=== PATIENT | male | born 1945 | race Caucasian/White ===

== ENCOUNTER → 2016-11-27 | Outpatient (CLI) | payer BC, OTHER ==
[~2016-11-27] MED LIST: AMOX500C3 PO; ASPI-435 PO; CELE100C PO; CMD5 PO; COLE625T PO; CYCL0.05 OPB; DEXL60CA4; GLUCTAB7 PO; METO-551 PO; MISC1LIQ37 PO; MOVE-FREE PO; MULT-506 PO; POLY150C4 PO; PREG1CAP28 PO; TEST1GEL12; ZNTT/150 PO; ZOLP12.5 PO
== END | disposition home or self-care (01) ==
LOC: C.LABPBG 09:23
PROVIDERS: ATTEND Family Medicine
DX: Z00.00 Encounter for general adult medical examination without abnormal findings (principal)

== ENCOUNTER → 2017-01-08 | Outpatient (CLI) | payer BC, OTHER ==
--- NOTE | 2017-01-08 12:10 | DIAGNOSTIC IMAGING REPORT ---
TWO VIEW CHEST CLINICAL HISTORY: Cough. FINDINGS: PA and lateral chest radiographs are obtained. No prior studies are available for comparison at the time of dictation. The patient is status post midline sternotomy and mitral valve surgery. The heart is enlarged and there is atherosclerotic calcification of the thoracic aorta. The pulmonary vasculature is noncongested. Chronic interstitial thickening is observed. There is patchy airspace consolidation in the right upper lobe. The left lung is grossly clear and no pleural effusion is seen. There is no pneumothorax. The skeletal structures are osteopenic. Degenerative change and hyperkyphosis are noted in the thoracic spine. Cholecystectomy clips are seen in the right upper quadrant. IMPRESSION: 1. There is patchy airspace consolidation in the right upper lobe. The appearance is typical for pneumonia. Radiographic follow-up to resolution is recommended. 2. The lungs are otherwise clear. No pleural effusion is seen. 3. Cardiomegaly without radiographic evidence of congestive failure. Electronically signed by: Orville Santos M.D. 01/08/2017 12:09 PM Dictated Date/Time: 01/08/2017 12:07 PM
== END | disposition home or self-care (01) ==
LOC: C.RADBC 11:39
PROVIDERS: ATTEND Physician Assistant
DX: J18.1 Lobar pneumonia, unspecified organism (principal); I51.7 Cardiomegaly

== ENCOUNTER → 2017-03-31 | Outpatient (CLI) | payer BC, OTHER ==
--- NOTE | 2017-03-31 14:58 | DIAGNOSTIC IMAGING REPORT ---
TWO VIEW CHEST CLINICAL HISTORY: Pneumonia follow-up. FINDINGS: PA and lateral chest radiographs are compared to study dated 01/08/2017. The patient is status post midline sternotomy and mitral valve surgery. The heart is enlarged and there is atherosclerotic calcification of the thoracic aorta. The pulmonary vasculature is noncongested. Chronic interstitial thickening is observed. No airspace consolidation or pleural effusion is identified. Right upper lobe consolidation seen on 01/08/2017 has resolved. There is no pneumothorax. The skeletal structures are osteopenic. Degenerative change and hyperkyphosis are noted in the thoracic spine. Cholecystectomy clips are seen in the right upper quadrant. IMPRESSION: 1. Cardiomegaly with no acute cardiopulmonary abnormality. 2. Consolidation in the right upper lobe seen on 01/08/2017 has resolved. Electronically signed by: Orville Santos M.D. 03/31/2017 2:57 PM Dictated Date/Time: 03/31/2017 2:55 PM
[2017-03-31 17:55] LABS: ALT/SGPT 39 U/L (12-78); AST/SGOT 28 U/L (15-37); BLOOD UREA NITROGEN 21 mg/dl (7-18); BUN/CREATININE RATIO 15.9 (10-20); CALCIUM 8.6 mg/dl (8.5-10.1); CARBON DIOXIDE 28 mmol/L (21-32); CHLORIDE 109 mmol/L (98-107); GLUCOSE 93 mg/dl (70-99); POTASSIUM 4.5 mmol/L (3.5-5.1); SODIUM 143 mmol/L (136-145)
[2017-03-31 17:57] LABS: ALB/GLOB RATIO 1.1 (0.9-2); ALKALINE PHOSPHATASE 62 U/L (45-117)
== END | disposition home or self-care (01) ==
LOC: C.RADBC 14:09
PROVIDERS: ATTEND Family Medicine
DX: J18.9 Pneumonia, unspecified organism (principal); I10 Essential (primary) hypertension; I51.7 Cardiomegaly

== ENCOUNTER → 2017-04-14 | Outpatient (CLI) | payer BC, OTHER ==
[2017-04-14 10:28] LABS: ALT/SGPT 35 U/L (12-78); BLOOD UREA NITROGEN 21 mg/dl (7-18); BUN/CREATININE RATIO 15.2 (10-20); C-REACTIVE PROTEIN 1.02 mg/dl (0-0.29); CARBON DIOXIDE 25 mmol/L (21-32); CHLORIDE 108 mmol/L (98-107); GLUCOSE 71 mg/dl (70-99); POTASSIUM 4.4 mmol/L (3.5-5.1); SODIUM 140 mmol/L (136-145)
[2017-04-14 10:31] LABS: ALKALINE PHOSPHATASE 62 U/L (45-117); AST/SGOT 29 U/L (15-37)
--- NOTE | 2017-06-10 10:44 | CODING QUERY NO DIAGNOSIS ---
TREATMENT RENDERED WITHOUT A DIAGNOSIS To promote full compliance with coding requirements relating to patient care, physician participation is requested in all cases of embedded firmware engineer uncertainty. Please assist us with providing a diagnosis/symptom for the test(s) below: A diagnosis/symptom was not documented on your Order. A valid diagnosis/symptom is required to bill all insurances. Please remember that we are unable to code a diagnosis of rule out, probable, possible, questionable, or suspected. Tests that require a diagnosis: DOS 04/14 * ESR, CMP, CRP DIAGNOSIS: Provider Signature: Date: Thank you Supriya [facility] Information Management Once completed, please kindly fax back to [phone] For questions please call [phone]
== END | disposition home or self-care (01) ==
LOC: C.LABSPEC 09:15
PROVIDERS: ATTEND Internal Medicine Rheumatology
DX: M45.0 Ankylosing spondylitis of multiple sites in spine (principal)

== ENCOUNTER → 2017-07-21 | Outpatient (CLI) | payer BC, OTHER ==
[2017-07-21 11:48] LABS: HEMATOCRIT 43.6 % (42-52); MEAN CELL VOLUME 90.1 fL (80-100); MEAN CORPUSCULAR HGB CONC 34.4 g/dl (32-36); MEAN PLATELET VOLUME 12.4 fL (7.4-10.4); PLATELET COUNT 260 K/uL (130-400); RED BLOOD COUNT 4.84 M/uL (4.7-6.1); WHITE BLOOD COUNT 7.18 K/uL (4.8-10.8)
[2017-07-21 11:55] LABS: BLOOD UREA NITROGEN 21 mg/dl (7-18); BUN/CREATININE RATIO 16.2 (10-20); CALCIUM 9.5 mg/dl (8.5-10.1); CARBON DIOXIDE 28 mmol/L (21-32); CHLORIDE 105 mmol/L (98-107); GLUCOSE 111 mg/dl (70-99); POTASSIUM 4.5 mmol/L (3.5-5.1); SODIUM 138 mmol/L (136-145)
== END | disposition home or self-care (01) ==
LOC: C.LABPBG 10:10
PROVIDERS: ATTEND Internal Medicine Interventional Cardiology
DX: I25.10 Atherosclerotic heart disease of native coronary artery without angina pectoris (principal)

== ENCOUNTER → 2017-10-02 | Outpatient (CLI) | payer BC, OTHER ==
[2017-10-02 17:23] LABS: BASO % 0.3 %; BASO ABS # 0.02 K/uL (0-0.2); COMPLETE YES; EOS % 1.3 %; HEMATOCRIT 43.5 % (42-52); IG% 0.5 %; LYMPH % 26.4 %; LYMPH ABS # 1.59 K/uL (1.2-3.4); MEAN CELL VOLUME 93.1 fL (80-100); MEAN CORPUSCULAR HEMOGLOBIN 32.3 pg (25-34); MEAN CORPUSCULAR HGB CONC 34.7 g/dl (32-36); MEAN PLATELET VOLUME 12.2 fL (7.4-10.4); MONO % 9.5 %; PLATELET COUNT 241 K/uL (130-400); RED BLOOD COUNT 4.67 M/uL (4.7-6.1); WHITE BLOOD COUNT 6.03 K/uL (4.8-10.8)
[2017-10-02 17:42] LABS: ALT/SGPT 42 U/L (12-78); BLOOD UREA NITROGEN 18 mg/dl (7-18); BUN/CREATININE RATIO 14.6 (10-20); CALCIUM 9.2 mg/dl (8.5-10.1); CARBON DIOXIDE 27 mmol/L (21-32); CHLORIDE 107 mmol/L (98-107); CREATININE 1.25 mg/dl (0.60-1.40); GLUCOSE 94 mg/dl (70-99); POTASSIUM 4.4 mmol/L (3.5-5.1); SODIUM 139 mmol/L (136-145)
[2017-10-02 17:53] LABS: ALB/GLOB RATIO 1.2 (0.9-2); ALKALINE PHOSPHATASE 54 U/L (45-117); AST/SGOT 31 U/L (15-37)
--- NOTE | 2017-10-09 10:30 | CODING QUERY MEDICAL NECESSITY ---
SUPPORTING DIAGNOSIS NEEDED Dr. Minor, A supporting diagnosis is required for the test/procedure performed on this patient in order for us to be reimbursed by the patient's insurance. Please provide a supporting diagnosis for the following test/procedure listed below next to the test name along with your signature. *If there is no additional diagnosis for this patient that would support the following test/procedure please document that below next to the test/procedure. Test(s)/Procedure(s) that require a supporting diagnosis: * ([id number]) B12 VITAMIN LEVEL DIAGNOSIS: DATE OF SERVICE: 10/02/17 Provider Signature: Date: Thank you Remi Kingston [facility] Information Management Once completed, please kindly fax back to [phone] For questions please call [phone]
== END | disposition home or self-care (01) ==
LOC: C.LABPBG 11:12
PROVIDERS: ATTEND Family Medicine
DX: G62.9 Polyneuropathy, unspecified (principal); R60.9 Edema, unspecified

== ENCOUNTER → 2018-02-23 | Day surgery (SDC) | payer BC, OTHER ==
[2018-02-11 16:20] VITALS: Ht 163.8 cm; Wt 79.1 kg
[~2018-02-23] VITALS: Ht 163.8 cm; Wt 79.1 kg
[~2018-02-23] MED LIST changes: +ALUM1SUS; +AMLO10TA2 PO; -CELE100C PO; +CLB/200 PO; +CMD/25 PO; -CMD5 PO; -COLE625T PO; -CYCL0.05 OPB; +CYCL0.052 OP; +DICL1GEL12; +ENOX80IN SQ; +LIDOCAINE HCL 2% 2 ML VIAL (20MG/ML) ONE; +LPR50X PO; +OXYC-643 PO; +PREG100C PO; -PREG1CAP28 PO; +PROPOFOL IV EMULSION 10 MG/ML 20 ML VIAL ONE; +RANI150T85 PO; +RANO1000 PO; +RANO500T PO; +SENN-61 PO; +SODIUM CHLORIDE 0.9% 500ML 500 ML IV ONE; -TEST1GEL12; +WARF5TAB90 PO; +WLC625 PO; -ZNTT/150 PO
--- NOTE | 2018-02-23 11:56 | Endo History and Physical ---
History & Physical Date of Service: February 23, 2018. Chief Complaint: Dukes's Referring Physician: Dr. 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 Past Medical History Male Genitourinary Prob., Reflux, Cancer, High Cholesterol, CABG, CVA/TIA Past Surgical History Hx Cardiac Surgery: Yes (CABG & REPAIR [facility] MITRAL [facility]VE-DEC [facility] Hx Internal Defibrillator: No Hx Pacemaker: No Hx Abdominal Surgery: Yes (CHOLECYSTECTOMY) Hx of Implantable Prosthesis: No Hx Post-Op Nausea and Vomiting: No Hx Cancer Surgery: Yes (SKIN CANCER REMOVED "SEVERAL TIMES") Hx Thoracic Surgery: No Hx Orthopedic: No Hx Urinary Tract Surgery: No Family History IBD Social History Smoking Status: Never Smoker Hx Substance Use: No Hx Alcohol Use: No Allergies Coded Allergies: Adalimumab (Verified Allergy, Severe, NEUROPATHY/STIFF/SORE HANDS/FEET; PARKINSONS; CARPAL TUNNEL, 02/11/18) Infliximab (Verified Allergy, Severe, NEUROPATHY/STIFF/SORE HANDS/FEET; PARKINSONS; CARPAL TUNNEL, 02/23/18) Latex (Verified Allergy, Mild, RASH, 02/11/18) Sulfa Drugs (Verified Allergy, Mild, RASH/ITCH, 02/23/18) Benzyl Alcohol (Verified Allergy, Unknown, NEUROPATHY/STIFF/SORE HANDS/ FEET; PARKINSONS; CARPAL TUNNEL, 02/11/18) Etanercept (Verified Allergy, Unknown, NEUROPATHY;STIFF/SORE HANDS/FEET; PARKINSONS; CARPAL TUNNEL, 02/11/18) Mouse Protein (Verified Allergy, Unknown, NEUROPATHY, 02/11/18) Secukinumab (Verified Allergy, Unknown, NEUROPATHY, 02/11/18) Sorbitan (Verified Allergy, Unknown, NEUROPATHY, 02/11/18) Tromethamine (Verified Allergy, Unknown, NEUROPATHY/STIFF/SORE HANDS/FEET ; PARKINSONS; CARPAL TUNNEL, 02/11/18) Lisinopril (Verified Adverse Reaction, Unknown, COUGH,SLUSHING NOISE IN EARS, 02/11/18) Current Medications Reported Home Medications Medications Dose Route/Sig Max Daily Dose Days Date Category Welchol (Colesevelam Hcl) 625 Mg Tab 3 Tabs PO DAILY 02/11/18 Reported Voltaren 1% Top Gel (Diclofenac Sodium (Topical)) 1 % Gel DIRECTED 02/11/18 Reported Senokot (Senna) 8.6 Mg Tab 1 Tab PO Q2D 02/11/18 Reported Restasis (Cyclosporine (Ophth)) 0.05 % Emu 1 Drops OP BID 30 02/11/18 Reported Ranexa (Ranolazine) 500 Mg Tab 1 Tab PO QPM 30 02/11/18 Reported Ranexa (Ranolazine) 1,000 Mg Tab 1 Tab PO QAM 30 02/11/18 Reported Oxycodone/Acetaminophen 5MG/325MG (Oxycodone/Acetaminophen) 1 Tab Tab 1 Tablet PO Q6H PRN 02/11/18 Reported Metoprolol Tartrate 50 Mg Tab 0.75 Tab PO QAM 02/11/18 Reported Gaviscon Extra Strength 254-237.5 mg/5Ml (Aluminum Hydroxide-Mag Carb) 1 Trish Trish DIRECTED 02/11/18 Reported Lovenox (Enoxaparin Sodium) 80 Mg/0.8 Ml Inj 80 Mg SQ Q12H 02/11/18 Reported Coumadin (Warfarin Sod) 2.5 Mg Tab 1 Tab PO 4XWK 30 02/11/18 Reported Coumadin (Warfarin Sodium) 5 Mg Tab 1 Tab PO 3XWK 90 02/11/18 Reported Norvasc (Amlodipine Besylate) 10 Mg Tab 1 Tab PO DAILY 30 02/11/18 Reported CeleBREX (Celecoxib) 200 Mg Cap 1 Cap PO DAILY 30 02/11/18 Reported Lyrica (Pregabalin) 100 Mg Cap 100 Mg PO BID 02/11/18 Reported Zantac (Ranitidine HCl) 150 Mg Tab 150 Mg PO BID 03/28/15 Reported Ferrex 150 (Polysaccharide Iron Complex) 150 Mg Cap PO DAILY 02/10/15 Reported Dexilant (Dexlansoprazole) 60 Mg Cap 02/28/14 Reported Black Scott Concentrate ([employer] Natural Products) 1 Liq Liq 1 Tab PO HS 12/02/13 Reported [Move-Free] 1 Tab PO BID 12/02/13 Reported Glucosamine Chondroitin (Pexkdmfibtu-Skmmshbiwgi-Lqh C-) 1 Tab Tab 1 Tab PO BID 12/02/13 Reported Ambien Cr (Zolpidem Tartrate) 12.5 Mg Tabcr 12.5 Mg PO HS PRN 12/02/13 Reported Lopressor (Metoprolol Tartrate) 50 Mg Tab 25 Mg PO QPM 12/02/13 Reported Multivitamin (Multivitamins) Tab 1 Tab PO DAILY 11/03/13 Reported Aspirin 81 (Aspirin) 81 Mg Tab 1 Tab PO DAILY 11/03/13 Reported Amoxil (Amoxicillin) 500 Mg Cap 500 Mg PO TID PRN 11/03/13 Reported Vital Signs Weight (Kilograms): 79.09 Height (Feet): 5 Height (Inches): 4.5 Date Time Temp Pulse Resp B/P (MAP) Pulse Ox O2 Delivery O2 Flow Rate FiO2 02/23/18 11:41 36.5 59 20 132/80 (97) 99 Room Air Physical Exam General Appearance: WD/WN, no apparent distress Respiratory/Chest: Auscultation: breath sounds normal Cardiovascular: Heart Auscultation: RRR Abdomen: Bowel Sounds: normal Inspection & Palpation: soft, non-distended, no tenderness, guarding & rebound Assessment and Plan Assessment: 73 yo CM who presents for 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 Plan: Proceed with EGD.
--- NOTE | 2018-02-23 12:32 | GI REPORT ---
Patient Name: Robin Mccoy Procedure Date: 02/23/2018 11:34 AM Date of : 1945 Admit Type: Outpatient Age: 73 Gender: Male Attending MD: Kuldeep Winters DO Procedure: Upper GI endoscopy Providers: Kuldeep Winters DO Referring MD: Lexii Minor Indications: Follow-up of Dukes's esophagus Medicines: Monitored Anesthesia Care Complications: No immediate complications. Estimated Blood Loss: Estimated blood loss: none. Procedure: Pre-Anesthesia Assessment: - Prior to the procedure, a History and Physical was performed, and patient medications and allergies were reviewed. The patient's tolerance of previous anesthesia was also reviewed. The risks and benefits of the procedure and the sedation options and risks were discussed with the patient. All questions were answered, and informed consent was obtained. Prior Anticoagulants: The patient last took aspirin 1 day, Coumadin (warfarin) 4 days and Lovenox (enoxaparin) 1 day prior to the procedure. ASA Grade Assessment: III - A patient with severe systemic disease. After reviewing the risks and benefits, the patient was deemed in satisfactory condition to undergo the procedure. After obtaining informed consent, the endoscope was passed under direct vision. Throughout the procedure, the patient's blood pressure, pulse, and oxygen saturations were monitored continuously. The scope was introduced through the mouth, and advanced to the second part of duodenum. The upper GI endoscopy was accomplished without difficulty. The patient tolerated the procedure well. Findings: There were esophageal mucosal changes consistent with short-segment Dukes's esophagus present at the gastroesophageal junction. The maximum longitudinal extent of these mucosal changes was 2 cm in length. Mucosa was biopsied with a cold forceps for histology. One specimen bottle was sent to pathology. A small hiatal hernia was present. The examined duodenum was normal. Impression: - Esophageal mucosal changes consistent with short-segment Dukes's esophagus. Biopsied. - Small hiatal hernia. - Normal examined duodenum. Recommendation: - Resume previous diet. - Continue present medications. - Await pathology results. - Return to primary care physician as previously scheduled. Kuldeep Winters DO 02/23/2018 12:31:54 PM This report has been signed electronically. Note Initiated On: 02/23/2018 11:34 AM Number of Addenda: 0 I attest to the content of the Intraoperative Record and orders documented therein, exceptions below {[id number]}
--- NOTE | 2018-02-23 12:34 | Discharge Instructions ---
Endoscopy Patient Instructions Date / Procedure(s) Performed February 23, 2018. EGD Allergy Information Coded Allergies: Adalimumab (Verified Allergy, Severe, NEUROPATHY/STIFF/SORE HANDS/FEET; PARKINSONS; CARPAL TUNNEL, 02/11/18) Infliximab (Verified Allergy, Severe, NEUROPATHY/STIFF/SORE HANDS/FEET; PARKINSONS; CARPAL TUNNEL, 02/23/18) Latex (Verified Allergy, Mild, RASH, 02/11/18) Sulfa Drugs (Verified Allergy, Mild, RASH/ITCH, 02/23/18) Benzyl Alcohol (Verified Allergy, Unknown, NEUROPATHY/STIFF/SORE HANDS/ FEET; PARKINSONS; CARPAL TUNNEL, 02/11/18) Etanercept (Verified Allergy, Unknown, NEUROPATHY;STIFF/SORE HANDS/FEET; PARKINSONS; CARPAL TUNNEL, 02/11/18) Mouse Protein (Verified Allergy, Unknown, NEUROPATHY, 02/11/18) Secukinumab (Verified Allergy, Unknown, NEUROPATHY, 02/11/18) Sorbitan (Verified Allergy, Unknown, NEUROPATHY, 02/11/18) Tromethamine (Verified Allergy, Unknown, NEUROPATHY/STIFF/SORE HANDS/FEET ; PARKINSONS; CARPAL TUNNEL, 02/11/18) Lisinopril (Verified Adverse Reaction, Unknown, COUGH,SLUSHING NOISE IN EARS, 02/11/18) Discharge Date / Findings February 23, 2018. Dukes's esophagus with biopsies Hiatal hernia Medication Instructions Stopped Medication(s): last ASA yesterday,Warfarin 02/19,last Lovenox 02/22 at 0830 OK to resume all medications today as prescribed Reported Home Medications Medications Dose Route/Sig Max Daily Dose Days Date Category Welchol (Colesevelam Hcl) 625 Mg Tab 3 Tabs PO DAILY 02/11/18 Reported Voltaren 1% Top Gel (Diclofenac Sodium (Topical)) 1 % Gel DIRECTED 02/11/18 Reported Senokot (Senna) 8.6 Mg Tab 1 Tab PO Q2D 02/11/18 Reported Restasis (Cyclosporine (Ophth)) 0.05 % Emu 1 Drops OP BID 30 02/11/18 Reported Ranexa (Ranolazine) 500 Mg Tab 1 Tab PO QPM 30 02/11/18 Reported Ranexa (Ranolazine) 1,000 Mg Tab 1 Tab PO QAM 30 02/11/18 Reported Oxycodone/Acetaminophen 5MG/325MG (Oxycodone/Acetaminophen) 1 Tab Tab 1 Tablet PO Q6H PRN 02/11/18 Reported Metoprolol Tartrate 50 Mg Tab 0.75 Tab PO QAM 02/11/18 Reported Gaviscon Extra Strength 254-237.5 mg/5Ml (Aluminum Hydroxide-Mag Carb) 1 Trish Trish DIRECTED 02/11/18 Reported Lovenox (Enoxaparin Sodium) 80 Mg/0.8 Ml Inj 80 Mg SQ Q12H 02/11/18 Reported Coumadin (Warfarin Sod) 2.5 Mg Tab 1 Tab PO 4XWK 30 02/11/18 Reported Coumadin (Warfarin Sodium) 5 Mg Tab 1 Tab PO 3XWK 90 02/11/18 Reported Norvasc (Amlodipine Besylate) 10 Mg Tab 1 Tab PO DAILY 30 02/11/18 Reported CeleBREX (Celecoxib) 200 Mg Cap 1 Cap PO DAILY 30 02/11/18 Reported Lyrica (Pregabalin) 100 Mg Cap 100 Mg PO BID 02/11/18 Reported Zantac (Ranitidine HCl) 150 Mg Tab 150 Mg PO BID 03/28/15 Reported Ferrex 150 (Polysaccharide Iron Complex) 150 Mg Cap PO DAILY 02/10/15 Reported Dexilant (Dexlansoprazole) 60 Mg Cap 02/28/14 Reported Black Scott Concentrate ([employer] Natural Products) 1 Liq Liq 1 Tab PO HS 12/02/13 Reported [Move-Free] 1 Tab PO BID 12/02/13 Reported Glucosamine Chondroitin (Wbqkmnwhtcq-Lvgswpzmlrv-Hul C-) 1 Tab Tab 1 Tab PO BID 12/02/13 Reported Ambien Cr (Zolpidem Tartrate) 12.5 Mg Tabcr 12.5 Mg PO HS PRN 12/02/13 Reported Lopressor (Metoprolol Tartrate) 50 Mg Tab 25 Mg PO QPM 12/02/13 Reported Multivitamin (Multivitamins) Tab 1 Tab PO DAILY 11/03/13 Reported Aspirin 81 (Aspirin) 81 Mg Tab 1 Tab PO DAILY 11/03/13 Reported Amoxil (Amoxicillin) 500 Mg Cap 500 Mg PO TID PRN 11/03/13 Reported Provider Instructions Activity Restrictions - No exercising or heavy lifting for 24 hours. - Do not drink alcohol the day of the procedure. - Do not drive a car or operate machinery until the day after the procedure. - Do not make any important decisions or sign important papers in 24 hours after the procedure. Following Day: - Return to full activity which may include returning to work/school. Diet Start your diet with liquids and light foods (jello, soup, juice, toast). Then eat your usual diet if not nauseated. Treatment For Common After Affects For mild abdominal pain, bloating, or excessive gas: - Rest - Eat lightly - Lie on right side Follow-Up Information Follow-up with Dr. Lexii Minor as scheduled Anesthesia Information What You Should Know You have had a procedure that required some medicine to reduce anxiety and discomfort. This treatment is called moderate sedation. After receiving the treatment, you may be sleepy, but you will be able to breathe on your own. The effects of the treatment may last for several hours. Follow these instructions along with Activity/Diet recommendations noted above: * Do NOT do anything where dizziness or clumsiness would be dangerous. * Rest quietly at home today, then you can be up and about tomorrow. * Have a responsible person stay with you the rest of today. * You may have had an I.V. today. If so, you may take the dressing off later today. Recommendations Call your doctor if: * Trouble breathing * Continuous vomiting for more than 24 hours * Temperature above 101 degrees * Severe abdominal pain or bloating * Pain not relieved by pain medicine ordered * There is increased drainage or redness from any incision * A large amount of rectal bleeding greater than 2-3 tablespoons. (If you had a polyp/s removed or have hemorrhoids, a small amount of blood - from the rectum is to be expected.) * You have any unanswered questions or concerns. IN THE EVENT OF A SERIOUS EMERGENCY, GO TO THE NEAREST EMERGENCY ROOM Your discharge instructions were prepared by provider Kuldeep Winters. Patient Instructions Signature Page Robin Nadine Patient (or Guardian) Signature/Date: I have read and understand the instructions given to me by my caregivers. Caregiver/RN/Doctor Signature/Date: The above-named patient and/or guardian has received patient instructions on this date. + Original Patient Signature Page (only) stays with chart. Please make copy for patient.
[2018-02-23 12:56] VITALS: BP 129/74; PULSE 55; O2SAT 96
--- NOTE | 2018-02-23 14:05 | Anesthesiology Progress Note ---
Anesthesia Post Op Note Date & Time February 23, 2018 at 14:05 Vital Signs Pain Intensity: 0 Vital Signs Past 12 Hours Date Time Temp Pulse Resp B/P (MAP) Pulse Ox O2 Delivery O2 Flow Rate FiO2 02/23/18 12:56 55 18 129/74 (92) 96 Room Air 02/23/18 12:41 56 18 121/74 (90) 97 Room Air 02/23/18 12:26 56 16 122/67 (85) 98 Room Air 02/23/18 11:41 36.5 59 20 132/80 (97) 99 Room Air Notes Mental Status: alert / awake / arousable, participated in evaluation Pt Amnestic to Procedure: Yes Nausea / Vomiting: adequately controlled Pain: adequately controlled Airway Patency, RR, SpO2: stable & adequate BP & HR: stable & adequate Hydration State: stable & adequate Anesthetic Complications: no major complications apparent
== END | disposition home or self-care (01) ==
LOC: C.GI 11:08
PROVIDERS: ATTEND Internal Medicine
DX: Z09 Encounter for follow-up examination after completed treatment for conditions other than malignant neoplasm (principal); K20.9 Esophagitis, unspecified; K44.9 Diaphragmatic hernia without obstruction or gangrene; I48.91 Unspecified atrial fibrillation; I10 Essential (primary) hypertension; I25.10 Atherosclerotic heart disease of native coronary artery without angina pectoris; M19.90 Unspecified osteoarthritis, unspecified site; Z88.2 Allergy status to sulfonamides; Z91.040 Latex allergy status; Z86.73 Personal history of transient ischemic attack (TIA), and cerebral infarction without residual deficits; Z95.1 Presence of aortocoronary bypass graft; Z90.49 Acquired absence of other specified parts of digestive tract; Z85.828 Personal history of other malignant neoplasm of skin; Z79.01 Long term (current) use of anticoagulants; Z79.82 Long term (current) use of aspirin; Z79.899 Other long term (current) drug therapy

== ENCOUNTER 2021-01-23 12:44 | Observation (INO) ==
--- NOTE | 2021-01-23 15:01 | Emergency Department Note ---
Impression & Plan Stroke-like symptoms, Arm paresthesia, left, Arm weakness ED Provider Note NAME: MARIE VICKERS AGE: 75 SEX: M : 1945 ARRIVES VIA: Walk-In INFORMANT: Patient ED PROVIDER(S): Venu Lopez DO CHIEF COMPLAINT: Left upper extremity weakness HPI: Patient is a 75-year-old male who presents to the ER for left upper extremity numbness and weakness. Symptoms initially started just before 9 AM. It progressed to weakness as he noticed he had trouble writing. This completely resolved. Denies any headache or change in vision. No chest pain or shortness of breath. No nausea, vomiting, or diarrhea. No dysuria, urgency, or frequency. No other exacerbating or remitting factors. He does have some mild left lower quadrant pain which has been present for over a week. ROS: See above HPI for pertinent positives & negatives. A total of 10 systems reviewed and were otherwise negative. PAST MEDICAL HISTORY:See Below PAST SURGICAL HISTORY:See Below FAMILY HISTORY:See Below SOCIAL HISTORY:See Below HOME MEDICATIONS:See Below ALLERGIES:See Below VITALS:See Below PHYSICAL EXAMINATION: GENERAL: Sitting up in bed, alert, well appearing, well nourished, no distress, non-toxic EYE EXAM: normal conjunctiva. PERRL and EOM's intact. OROPHARYNX: no exudate, no erythema, lips, buccal mucosa, and tongue normal and mucous membranes are moist NECK: supple, no nuchal rigidity, no adenopathy, non-tender LUNGS: Clear to auscultation. Normal chest wall mechanics HEART: no murmurs, S1 normal and S2 normal ABDOMEN: abdomen soft, non-tender, normo-active bowel sounds, no masses, no rebound or guarding. UPPER EXTREMITIES: upper extremities are grossly normal. LOWER EXTREMITIES: No pitting edema. NEURO EXAM: Normal sensorium, cranial nerves II-XII intact, normal speech, no weakness of arms, no weakness of legs. No drift. Finger to nose intact. Gross sensation intact. MEDICAL DECISION MAKING: Patient is a 75-year-old male who presents ER for weakness of his left upper extremity which initially started paresthesias around 8:50 AM. IV was established blood work was obtained. Labs showed no significant leukocytosis or anemia. INR was slightly subtherapeutic at 2.2 as he has a mechanical valve/mitral valve. BMP was unremarkable. LFTs bilirubin were negative. Troponin was negative. Covid was negative. CT angio of the head and neck as well as Noncon of the head showed no focal infarct or occlusion. Based on his history this does appear to be consistent with a TIA. Discussed with the patient at bedside. Recommend admission for further work-up and he was agreeable. Triage Nursing notes reviewed. Limited review of prior medical records performed Vital Signs: reviewed and remarkable for no significant abnormalities Differential diagnosis: Differential Diagnosis includes but is not limited to ischemic Stroke, hemorrhagic stroke, bells palsy, mass, neoplasm, migraine headache, seizure, subarachnoid hemorrhage, TIA, and transient global amnesia. ER treatment provided: See below Diagnostics interpreted by me: ECG: Sinus rhythm rate of 60 Normal axis No PVCs T wave inversions in lead III and aVF QTC 442 Cardiac Monitoring: An order was placed for continuous cardiac monitoring. The monitor shows a rate of 62 with sinus rhythm. Laboratory studies: As stated above and show below. Imaging studies: CTs as discussed above Consultation(s): Discussed with Dr. 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 Osteoarthritis Osteopenia Peripheral neuropathy Raynauds phenomenon Rheumatoid arthritis Transient ischemic attack (TIA) (2005) Surgical History History of cardiac cath (12/2005) History of esophagogastroduodenoscopy (EGD) S/P CABG (coronary artery bypass graft) (12/2005) S/P cholecystectomy S/P mitral valve replacement (12/2005) S/P Mohs surgery for basal cell carcinoma Family History Uncle Myocardial infarction Aunt Myocardial infarction Grandfather (Maternal) Myocardial infarction Mother Breast cancer Diabetes Lung cancer Hypertension Brother Heart disease Diabetes Grandfather (Paternal) Cancer Grandmother (Maternal) Cancer Daughter Ankylosing spondylitis Asthma Father Cancer Liver Lung cancer Stroke Social History Smoking Status: Never smoker Second Hand Exposure: Yes (hx); Hx Alcohol Use: No Hx Substance Use: No Preferred Language: Turkmen Communication Ability: Effective Visual Impairment: No Limitations Hearing Ability: Normal Greenskeeper Supervisor Required: No Beliefs That Will Affect Care: None marital status: Current Living Situation: Spouse current occupational status: retired Feels Safe at Home: Yes Childhood Exposure to Second-Hand Smoke: Yes caffeine: Yes (very limited) during the past year weight has: increased > 10 lbs Dental Care, Regularly: Yes Physical Activity Frequency: Daily Physical Activity Frequency Comment: tread mill, walking ,weight lifting Seatbelt Use: always Sunscreen Use: Yes Assistive Devices: Glasses Allergies Allergies Allergy/AdvReac Type Severity Reaction Status Date / Time adalimumab Allergy Severe NEUROPATHY/STIFF/SORE Verified 01/23/21 15:22 HANDS/FEET; PARKINSONS; CARPAL TUNNEL infliximab Allergy Severe NEUROPATHY/STIFF/SORE Verified 01/23/21 15:22 HANDS/FEET; PARKINSONS; CARPAL TUNNEL latex Allergy Mild RASH Verified 01/23/21 15:22 Sulfa (Sulfonamide Allergy Mild RASH/ITCH Verified 01/23/21 15:22 Antibiotics) benzyl alcohol Allergy Unknown NEUROPATHY/STIFF/SORE Verified 01/23/21 15:22 HANDS/FEET; PARKINSONS; CARPAL TUNNEL etanercept Allergy Unknown NEUROPATHY;STIFF/SORE Verified 01/23/21 15:22 HANDS/FEET; PARKINSONS; CARPAL TUNNEL mouse protein Allergy Unknown NEUROPATHY Verified 01/23/21 15:22 secukinumab Allergy Unknown NEUROPATHY Verified 01/23/21 15:22 sorbitan esters Allergy Unknown NEUROPATHY Verified 01/23/21 15:22 tromethamine Allergy Unknown NEUROPATHY/STIFF/SORE Verified 01/23/21 15:22 HANDS/FEET duloxetine [From Cymbalta] AdvReac Severe Nausea Verified 01/19/21 14:41 albuterol [From ProAir HFA] AdvReac Mild Tachycardia Verified 01/19/21 14:41 lisinopril AdvReac Unknown COUGH,SLUSHING Verified 01/19/21 14:41 NOISE IN EARS Ewqmdko-Vnl-Pef Reductase AdvReac Unknown Myalgia Verified 01/19/21 14:41 Inhibitor Home Meds Home Medications Medication Instructions Recorded Confirmed aspirin 81 mg tablet,delayed 81 mg PO HS tab 05/05/19 01/23/21 release cyclosporine 0.05 % eye drops in a 1 drops OP Q12H ea 05/05/19 01/23/21 dropperette cholecalciferol (vitamin D3) 5,000 unit PO DAILY 08/16/19 01/23/21 [Vitamin D3] glucosamine-chondroitin [Osteo 1 tab PO BID 08/16/19 01/23/21 Bi-Flex] [id number] 1 tab PO DAILY 08/16/19 01/23/21 [Marek Multivitamin For Men] ondansetron 4 mg PO BID PRN 08/16/19 01/23/21 polysaccharide iron complex 150 mg PO HS 08/16/19 01/23/21 [Ferrex 150] tofacitinib [Xeljanz] 10 mg PO QAM 08/16/19 01/23/21 venlafaxine 37.5 mg PO HS 08/16/19 01/23/21 calcium carbonate 500 mg (1,250 1 tab PO BID 04/11/20 01/23/21 mg)-vitamin D3 200 unit tablet diclofenac sodium 1 % topical gel 4 gm TOP QID PRN 04/11/20 01/23/21 omega-3 fatty acids 1,000 mg 1,000 mg PO DAILY 04/11/20 01/23/21 capsule oxycodone-acetaminophen 5 mg-325 1 tab PO Q6H PRN 04/11/20 01/23/21 mg tablet temazepam 15 mg capsule 15 mg PO HS cap 04/11/20 01/23/21 cephalexin 500 mg capsule 500 mg PO BID 01/19/21 01/23/21 warfarin 5 mg PO MOWEFR 01/23/21 01/23/21 warfarin [Jantoven] 10 mg PO SUTUTHSA 01/23/21 01/23/21 Previous Rx's Medication Instructions Recorded evolocumab 140 mg/mL subcutaneous See Rx Instructions .ROUTE 10/09/20 pen injector .COMPLEX #2 milliliter amlodipine 10 mg tablet 10 mg PO QAM #90 tab 10/12/20 metoprolol tartrate 25 mg tablet 25 mg PO BID #180 tab 10/12/20 ranolazine 1,000 mg 1,000 mg PO QAM #90 tab 10/12/20 tablet,extended release,12 hr ranolazine 500 mg tablet,extended 500 mg PO QPM #90 tab 10/12/20 release,12 hr sennosides 8.6 mg tablet 8.6 mg PO DAILY PRN #30 tab 10/24/20 pantoprazole 40 mg tablet,delayed 40 mg PO DAILY #90 tab 11/22/20 release famotidine 40 mg tablet 40 mg PO HS #30 tab 12/07/20 baclofen 5 mg tablet 5 mg PO TID PRN #30 tab 01/19/21 Results & Data (ED) Vital Signs Vital Signs - 24 hr 01/23/21 12:57 01/23/21 15:35 01/23/21 15:49 Temperature 36.2 C L Temperature Source Oral Pulse Rate 62 58 L 57 L Pulse Rate from SpO2 Sensor 58 L 56 L Respiratory Rate 20 12 12 Respiratory Effort / Characteristics Non-Labored Spontaneous Respiratory Depth Normal Respiratory Pattern Regular Blood Pressure 118/71 132/66 Blood Pressure Mean 86 88 Pulse Oximetry 99 96 97 Oxygen Delivery Method Room Air Sepsis Recent Fever Within 48 Hours No Sepsis New/Unexplained Change in Mental Status No Sepsis Action Taken by Nursing No Action Required 01/23/21 15:50 01/23/21 16:00 01/23/21 16:10 Temperature Temperature Source Pulse Rate 57 L 57 L 60 Pulse Rate from SpO2 Sensor 58 L 57 L 60 Respiratory Rate 10 L 12 13 Respiratory Effort / Characteristics Respiratory Depth Respiratory Pattern Blood Pressure 135/70 Blood Pressure Mean 91 Pulse Oximetry 96 98 97 Oxygen Delivery Method Sepsis Recent Fever Within 48 Hours Sepsis New/Unexplained Change in Mental Status Sepsis Action Taken by Nursing 01/23/21 16:20 01/23/21 16:30 01/23/21 16:40 Temperature Temperature Source Pulse Rate 58 L 60 61 Pulse Rate from SpO2 Sensor 59 L 60 61 Respiratory Rate 11 L 12 21 Respiratory Effort / Characteristics Respiratory Depth Respiratory Pattern Blood Pressure 139/73 Blood Pressure Mean 95 Pulse Oximetry 97 99 97 Oxygen Delivery Method Sepsis Recent Fever Within 48 Hours Sepsis New/Unexplained Change in Mental Status Sepsis Action Taken by Nursing 01/23/21 16:50 01/23/21 17:00 01/23/21 17:10 Temperature Temperature Source Pulse Rate 62 66 69 Pulse Rate from SpO2 Sensor 63 Respiratory Rate 6 L 20 11 L Respiratory Effort / Characteristics Respiratory Depth Respiratory Pattern Blood Pressure 137/67 Blood Pressure Mean 90 Pulse Oximetry 98 Oxygen Delivery Method Sepsis Recent Fever Within 48 Hours Sepsis New/Unexplained Change in Mental Status Sepsis Action Taken by Nursing 01/23/21 17:20 01/23/21 17:30 01/23/21 17:40 Temperature Temperature Source Pulse Rate 62 61 63 Pulse Rate from SpO2 Sensor Respiratory Rate 13 12 12 Respiratory Effort / Characteristics Respiratory Depth Respiratory Pattern Blood Pressure 134/66 Blood Pressure Mean 88 Pulse Oximetry Oxygen Delivery Method Sepsis Recent Fever Within 48 Hours Sepsis New/Unexplained Change in Mental Status Sepsis Action Taken by Nursing Laboratory Data Result diagrams: 01/23/21 14:38 01/23/21 14:38 Lab Results 01/23/21 01/23/21 01/23/21 Range/Units 14:36 14:38 14:38 WBC 7.91 (4.8-10.8) K/uL RBC 3.85 L (4.7-6.1) M/uL Hgb 12.3 L (14.0-18.0) g/dL Hct 35.5 L (42-52) % MCV 92.2 (80-100) fL MCH 31.9 (25-34) pg MCHC 34.6 (32-36) g/dL RDW Std Deviation 43.2 (36.4-46.3) fL RDW Coeff of [place] 12.8 (11.5-14.5) % Plt Count 456 H (130-400) K/uL MPV 10.2 (7.4-10.4) fL Immature Gran % (Auto) 0.5 % Neut % (Auto) 66.3 % Lymph % (Auto) 23.1 % Lares % (Auto) 9.1 % Eos % (Auto) 0.9 % Baso % (Auto) 0.1 % Neut # (Auto) 5.24 (1.4-6.5) K/uL Lymph # (Auto) 1.83 (1.2-3.4) K/uL Lares # (Auto) 0.72 H (0.11-0.59) K/uL Eos # (Auto) 0.07 (0-0.5) K/uL Baso # (Auto) 0.01 (0-0.2) K/uL Immature Gran # (Auto) 0.04 H (0.00-0.02) K/uL PT 20.9 H (9.0-12.0) Seconds INR 2.2 H (0.9-1.1) APTT 48.1 H* (21.0-31.0) Seconds PTT Ratio 1.8 Sodium (136-145) mmol/L Potassium (3.5-5.1) mmol/L Chloride (98-107) mmol/L Carbon Dioxide (21-32) mmol/L Anion Gap (3-11) BUN (7-18) mg/dl Creatinine (0.6-1.4) mg/dl Est Cr Clr Drug Dosing ml/min Est GFR ( Amer) Est GFR (Non-Af Amer) BUN/Creatinine Ratio (10-20) Glucose (70-99) mg/dl POC Glucose 108 H (70-99) mg/dl Calcium (8.5-10.1) mg/dl Magnesium (1.8-2.4) mg/dl Total Bilirubin (0.2-1) mg/dl AST (15-37) U/L ALT (12-78) U/L Alkaline Phosphatase (45-117) U/L Troponin I (0-0.045) ng/ml Total Protein (6.4-8.2) gm/dl Albumin (3.4-5.0) gm/dl Globulin (2.5-4.0) gm/dl Albumin/Globulin Ratio (0.9-2) COVID-19 Eval Order SARS-CoV-2 (PCR) (Negative) Influenza Type A (PCR) (Neg) Influenza Type B (PCR) (Neg) RSV (RT-PCR) (Neg) 01/23/21 01/23/21 01/23/21 Range/Units 14:38 15:57 15:57 WBC (4.8-10.8) K/uL RBC (4.7-6.1) M/uL Hgb (14.0-18.0) g/dL Hct (42-52) % MCV (80-100) fL MCH (25-34) pg MCHC (32-36) g/dL RDW Std Deviation (36.4-46.3) fL RDW Coeff of [place] (11.5-14.5) % Plt Count (130-400) K/uL MPV (7.4-10.4) fL Immature Gran % (Auto) % Neut % (Auto) % Lymph % (Auto) % Lares % (Auto) % Eos % (Auto) % Baso % (Auto) % Neut # (Auto) (1.4-6.5) K/uL Lymph # (Auto) (1.2-3.4) K/uL Lares # (Auto) (0.11-0.59) K/uL Eos # (Auto) (0-0.5) K/uL Baso # (Auto) (0-0.2) K/uL Immature Gran # (Auto) (0.00-0.02) K/uL PT (9.0-12.0) Seconds INR (0.9-1.1) APTT (21.0-31.0) Seconds PTT Ratio Sodium 139 (136-145) mmol/L Potassium 4.8 (3.5-5.1) mmol/L Chloride 107 (98-107) mmol/L Carbon Dioxide 29 (21-32) mmol/L Anion Gap 3.0 (3-11) BUN 21 H (7-18) mg/dl Creatinine 1.36 (0.6-1.4) mg/dl Est Cr Clr Drug Dosing 45.9 ml/min Est GFR ( Amer) 59.4 Est GFR (Non-Af Amer) 51.3 BUN/Creatinine Ratio 15.6 (10-20) Glucose 105 H (70-99) mg/dl POC Glucose (70-99) mg/dl Calcium 9.4 (8.5-10.1) mg/dl Magnesium 2.3 (1.8-2.4) mg/dl Total Bilirubin 0.5 (0.2-1) mg/dl AST 26 (15-37) U/L ALT 33 (12-78) U/L Alkaline Phosphatase 62 (45-117) U/L Troponin I < 0.015 (0-0.045) ng/ml Total Protein 8.8 H (6.4-8.2) gm/dl Albumin 3.6 (3.4-5.0) gm/dl Globulin 5.2 H (2.5-4.0) gm/dl Albumin/Globulin Ratio 0.7 L (0.9-2) COVID-19 Eval Order CovFluRsv at [facility] SARS-CoV-2 (PCR) NEGATIVE (Negative) Influenza Type A (PCR) Negative (Neg) Influenza Type B (PCR) Negative (Neg) RSV (RT-PCR) Negative (Neg) Administered Medications Discontinued Medications Ioversol (Optiray 320 125ml) 120 ml IV ONCE ONE Stop: 01/23/21 15:22 Last Admin: 01/23/21 15:22 Dose: 120 ml Documented by: [id number] Imaging Data Radiologist's Impression: Head CT 01/23/21 14:[address] OF THE BRAIN; CT ANGIOGRAM OF THE BRAIN; CT ANGIOGRAM OF THE NECK CLINICAL HISTORY: Strokelike symptoms. COMPARISON STUDY: CT of the brain dated 03/01/2011 TECHNIQUE: Unenhanced axial CT scan of the brain is performed. Subsequently, following the IV administration of 120 of Optiray 320, CT angiogram of the head and neck was performed from the aortic arch to the vertex. Images are reviewed in the axial, sagittal, and coronal planes. 3-D MIPS images are created and assessed. IV contrast was administered without complication. All measurements were calculated based on NASCET criteria. A dose lowering technique was utilized adhering to the principles of ALARA. FINDINGS: Brain parenchyma: There is age-related involutional change noting mild subcortical and periventricular microangiopathic disease. There is no hemorrhage, mass effect, or evidence of acute territorial ischemia by CT cr iteria. There is no evidence of enhancing mass lesion on the angiogram phase images. The ventricles, sulci, and cisterns are prominent secondary to involutional change. A chronic lacunar infarct is noted in the right cerebellar hemisphere. Buenrostro-white matter differentiation is preserved. No extra-axial fluid collection is seen. Mineralization is noted in the basal ganglia. Thoracic aorta: Visualized portions of the thoracic aorta are normal in caliber. The aortic arch demonstrates standard 3-vessel anatomy. Right carotid arterial system: The right common carotid artery is widely patent. Atherosclerotic plaque in the carotid bulb causes less than 50% luminal narrowing at the origin of the internal carotid artery. The remainder of the right internal carotid artery is clear, as is the right external carotid artery. Left carotid arterial system: The left common carotid artery is widely patent, as are the left internal and external carotid arteries. Minimal plaque is noted in the carotid bulb. Vertebral arteries: The vertebral arteries are widely patent bilaterally and codominant. Subclavian arteries: Widely patent bilaterally. Intracranial vasculature: There is atherosclerotic calcification of the cavernous carotid and vertebral arteries. The internal carotid arteries are patent at the skull base with narrowing in the cavernous carotid region secondary to calcified and soft plaque. The anterior and middle cerebral arteries patent bilaterally. The vertebrobasilar system and posterior cerebral arteries are widely patent. The vertebral arteries are codominant. There is no aneurysm, high-grade stenosis, or focal vessel cut off seen throughout the intracranial circulation. Jugular veins: Patent bilaterally. Dural sinuses: Patent. Lung apices: Partially visualized upper lobe lung parenchyma appears clear. Soft tissues: The visualized pharyngeal soft tissues are normal in appearance noting angiographic phase technique. The oropharyngeal airway appears widely patent. Low-attenuation thyroid nodules measure up to 6 mm. The salivary glands are normal in appearance. No cervical lymphadenopathy is seen. Skeletal structures: The skeletal structures are osteopenic. The calvarium appears intact. The cervical spine is maintained noting multilevel spondylosis. No lytic or blastic lesion is seen. Midline sternotomy wires are noted. Orbits: The bony orbits are intact. Orbital contents are normal as visualized. Sinuses and mastoids: The paranasal sinuses are clear. The mastoid air cells are well pneumatized. IMPRESSION: 1. There is no hemorrhage, mass effect, or evidence of acute territorial ischemia by CT criteria. 2. Atherosclerotic plaque causes mild stenosis of the cavernous carotid arteries bilaterally. 3. Otherwise unremarkable CT angiogram of the brain. 4. Atherosclerotic plaque causes less than 50% stenosis at the origin of the right internal carotid artery. 5. Otherwise unremarkable CT angiogram of the neck. ACT 112: Negative or not required by law. Electronically signed by: Orville Santos M.D. 01/23/2021 3:34 PM Head CTA 01/23/21 14:[address] OF THE BRAIN; CT ANGIOGRAM OF THE BRAIN; CT ANGIOGRAM OF THE NECK CLINICAL HISTORY: Strokelike symptoms. COMPARISON STUDY: CT of the brain dated 03/01/2011 TECHNIQUE: Unenhanced axial CT scan of the brain is performed. Subsequently, following the IV administration of 120 of Optiray 320, CT angiogram of the head and neck was performed from the aortic arch to the vertex. Images are reviewed in the axial, sagittal, and coronal planes. 3-D MIPS images are created and assessed. IV contrast was administered without complication. All measurements were calculated based on NASCET criteria. A dose lowering technique was utilized adhering to the principles of ALARA. FINDINGS: Brain parenchyma: There is age-related involutional change noting mild subcortical and periventricular microangiopathic disease. There is no hemorrhage, mass effect, or evidence of acute territorial ischemia by CT criteria. There is no evidence of enhancing mass lesion on the angiogram phase images. The ventricles, sulci, and cisterns are prominent secondary to involutional change. A chronic lacunar infarct is noted in the right cerebellar hemisphere. Buenrostro-white matter differentiation is preserved. No extra-axial fluid collection is seen. Mineralization is noted in the basal ganglia. Thoracic aorta: Visualized portions of the thoracic aorta are normal in caliber. The aortic arch demonstrates standard 3-vessel anatomy. Right carotid arterial system: The right common carotid artery is widely patent. Atherosclerotic plaque in the carotid bulb causes less than 50% luminal narrowing at the origin of the internal carotid artery. The remainder of the right internal carotid artery is clear, as is the right external carotid artery. Left carotid arterial system: The left common carotid artery is widely patent, as are the left internal and external carotid arteries. Minimal plaque is noted in the carotid bulb. Vertebral arteries: The vertebral arteries are widely patent bilaterally and codominant. Subclavian arteries: Widely patent bilaterally. Intracranial vasculature: There is atherosclerotic calcification of the cavernous carotid and vertebral arteries. The internal carotid arteries are patent at the skull base with narrowing in the cavernous carotid region secondary to calcified and soft plaque. The anterior and middle cerebral arteries patent bilaterally. The vertebrobasilar system and posterior cerebral arteries are widely patent. The vertebral arteries are codominant. There is no aneurysm, high-grade stenosis, or focal vessel cut off seen throughout the intracranial circulation. Jugular veins: Patent bilaterally. Dural sinuses: Patent. Lung apices: Partially visualized upper lobe lung parenchyma appears clear. Soft tissues: The visualized pharyngeal soft tissues are normal in appearance noting angiographic phase technique. The oropharyngeal airway appears widely patent. Low-attenuation thyroid nodules measure up to 6 mm. The salivary glands are normal in appearance. No cervical lymphadenopathy is seen. Skeletal structures: The skeletal structures are osteopenic. The calvarium appears intact. The cervical spine is maintained noting multilevel spondylosis. No lytic or blastic lesion is seen. Midline sternotomy wires are noted. Orbits: The bony orbits are intact. Orbital contents are normal as visualized. Sinuses and mastoids: The paranasal sinuses are clear. The mastoid air cells are well pneumatized. IMPRESSION: 1. There is no hemorrhage, mass effect, or evidence of acute territorial ischemia by CT criteria. 2. Atherosclerotic plaque causes mild stenosis of the cavernous carotid arteries bilaterally. 3. Otherwise unremarkable CT angiogram of the brain. 4. Atherosclerotic plaque causes less than 50% stenosis at the origin of the right internal carotid artery. 5. Otherwise unremarkable CT angiogram of the neck. ACT 112: Negative or not required by law. Electronically signed by: Orville Santos M.D. 01/23/2021 3:34 PM Neck CTA 01/23/21 14:[address] OF THE BRAIN; CT ANGIOGRAM OF THE BRAIN; CT ANGIOGRAM OF THE NECK CLINICAL HISTORY: Strokelike symptoms. COMPARISON STUDY: CT of the brain dated 03/01/2011 TECHNIQUE: Unenhanced axial CT scan of the brain is performed. Subsequently, following the IV administration of 120 of Optiray 320, CT angiogram of the head and neck was performed from the aortic arch to the vertex. Images are reviewed in the axial, sagittal, and coronal planes. 3-D MIPS images are created and assessed. IV contrast was administered without complication. All measurements were calculated based on NASCET criteria. A dose lowering technique was utilized adhering to the principles of ALARA. FINDINGS: Brain parenchyma: There is age-related involutional change noting mild subcortical and periventricular microangiopathic disease. There is no hemorrhage, mass effect, or evidence of acute territorial ischemia by CT criteria. There is no evidence of enhancing mass lesion on the angiogram phase images. The ventricles, sulci, and cisterns are prominent secondary to involutional change. A chronic lacunar infarct is noted in the right cerebellar hemisphere. Buenrostro-white matter differentiation is preserved. No extra-axial fluid collection is seen. Mineralization is noted in the basal ganglia. Thoracic aorta: Visualized portions of the thoracic aorta are normal in caliber. The aortic arch demonstrates standard 3-vessel anatomy. Right carotid arterial system: The right common carotid artery is widely patent. Atherosclerotic plaque in the carotid bulb causes less than 50% luminal narrowing at the origin of the internal carotid artery. The remainder of the right internal carotid artery is clear, as is the right external carotid artery. Left carotid arterial system: The left common carotid artery is widely patent, as are the left internal and external carotid arteries. Minimal plaque is noted in the carotid bulb. Vertebral arteries: The vertebral arteries are widely patent bilaterally and codominant. Subclavian arteries: Widely patent bilaterally. Intracranial vasculature: There is atherosclerotic calcification of the cavernous carotid and vertebral arteries. The internal carotid arteries are patent at the skull base with narrowing in the cavernous carotid region secondary to calcified and soft plaque. The anterior and middle cerebral arteries patent bilaterally. The vertebrobasilar system and posterior cerebral arteries are widely patent. The vertebral arteries are codominant. There is no aneurysm, high-grade stenosis, or focal vessel cut off seen throughout the intracranial circulation. Jugular veins: Patent bilaterally. Dural sinuses: Patent. Lung apices: Partially visualized upper lobe lung parenchyma appears clear. Soft tissues: The visualized pharyngeal soft tissues are normal in appearance noting angiographic phase technique. The oropharyngeal airway appears widely patent. Low-attenuation thyroid nodules measure up to 6 mm. The salivary glands are normal in appearance. No cervical lymphadenopathy is seen. Skeletal structures: The skeletal structures are osteopenic. The calvarium appears intact. The cervical spine is maintained noting multilevel spondylosis. No lytic or blastic lesion is seen. Midline sternotomy wires are noted. Orbits: The bony orbits are intact. Orbital contents are normal as visualized. Sinuses and mastoids: The paranasal sinuses are clear. The mastoid air cells are well pneumatized. IMPRESSION: 1. There is no hemorrhage, mass effect, or evidence of acute territorial ischemia by CT criteria. 2. Atherosclerotic plaque causes mild stenosis of the cavernous carotid arteries bilaterally. 3. Otherwise unremarkable CT angiogram of the brain. 4. Atherosclerotic plaque causes less than 50% stenosis at the origin of the right internal carotid artery. 5. Otherwise unremarkable CT angiogram of the neck. ACT 112: Negative or not required by law. Electronically signed by: Orville Santos M.D. 01/23/2021 3:34 PM Abdomen/Pelvis CT 01/23/21 15:01 CT OF THE ABDOMEN AND PELVIS WITH CONTRAST CLINICAL HISTORY: Left lower quadrant abdominal pain. COMPARISON STUDY: CT of the abdomen and pelvis February 19, 2019. TECHNIQUE: Following IV administration of 120 mL of Optiray-320, axial images of the abdomen and pelvis were obtained from the lung bases to the proximal femurs. Images were reviewed in the axial, sagittal, and coronal planes. IV contrast was administered without complication. Automated exposure control was utilized for the study. A dose lowering technique was utilized adhering to the principles of ALARA. CT DOSE: 1739.09 mGy.cm FINDINGS: Lung bases are unremarkable. Prosthetic mitral valve is noted. There is mild cardiomegaly. No pneumatosis, free air or portal venous gas is present. There is no biliary ductal dilatation status post cholecystectomy. The liver, spleen, adrenal glands, kidneys and pancreas are unremarkable. There is no peripancreatic infiltration. No hydronephrosis. There is extensive aortic atherosclerotic plaque. The caliber of the abdominal aorta is normal. The appendix is normal. There is no evidence for a bowel obstruction. The caliber and wall thickness of small and large bowel are normal. A few colonic diverticula are noted without evidence for acute diverticulitis. A moderate amount stool within the colon is noted. Bladder wall thickening is noted. Prostate is mildly enlarged. No ascites or lymphadenopathy is present. No acute fracture or suspicious lesion is identified. IMPRESSION: 1. No acute process within the abdomen or pelvis. 2. No bowel obstruction. No bowel wall thickening. 3. Bladder wall thickening. This is likely chronic but could be correlated with urinalysis. ACT 112: Negative or not required by law. Electronically signed by: Rojelio Land M.D. 01/23/2021 3:29 PM Chest X-Ray 01/23/21 16:06 XR chest 1V portable HISTORY: Stroke symptoms. COMPARISON: None. FINDINGS: No pneumothorax. No pleural effusion is. The heart is top normal in size. There are poststernotomy changes and a cardiac valve prosthesis. No focal lung consolidations to suggest pneumonia. No evidence for pulmonary edema. IMPRESSION: No acute process. ACT 112: Negative or not required by law. Electronically signed by: Balaji Miles M.D. 01/23/2021 5:16 PM Discharge Plan Visit Data Chief Complaint: Neuro Symptoms/Deficit Stated Complaint: LT ARM NUMB ED Provider: Venu Lopez Discharge Problem: Stroke-like symptoms, Arm paresthesia, left, Arm weakness Forms Stand Alone Forms: [email or web address] Prescriptions Prescriptions: No Action Repatha SureClick 140 mg/mL pen injector See Rx Instructions .ROUTE .COMPLEX Qty: 2 RF: 11 sennosides 8.6 mg tablet 8.6 mg PO DAILY PRN (Reason: Constipation) Qty: 30 RF: 5 pantoprazole [Protonix] 40 mg tablet,delayed release (DR/EC) 40 mg PO DAILY Qty: 90 RF: 1 calcium carbonate-vitamin D3 [Os-Bashir 500 + D3] 500 mg(1,250mg) -200 unit tablet 1 tab PO BID RF: 0 oxycodone-acetaminophen [Percocet] 5-325 mg tablet 1 tab PO Q6H PRN (Reason: Pain) RF: 0 diclofenac sodium [Voltaren] 1 % gel 4 gm TOP QID PRN (Reason: Pain) RF: 0 omega-3 fatty acids [Fish Oil Concentrate] 1,000 mg capsule 1,000 mg PO DAILY RF: 0 temazepam 15 mg capsule 15 mg PO HS RF: 0 metoprolol tartrate 25 mg tablet 25 mg PO BID Qty: 180 RF: 3 ranolazine 500 mg tablet extended release 12 hr 500 mg PO QPM Qty: 90 RF: 3 ranolazine 1,000 mg tablet extended release 12 hr 1,000 mg PO QAM Qty: 90 RF: 3 amlodipine 10 mg tablet 10 mg PO QAM Qty: 90 RF: 3 aspirin 81 mg tablet,delayed release (DR/EC) 81 mg PO HS RF: 0 cyclosporine 0.05 % dropperette 1 drops OP Q12H RF: 0 famotidine 40 mg tablet 40 mg PO HS Qty: 30 RF: 5 cephalexin 500 mg capsule 500 mg PO BID RF: 0 baclofen 5 mg tablet 5 mg PO TID PRN (Reason: muscle spasm) Qty: 30 RF: 0 venlafaxine 37.5 mg Capsule,Extended Release 24hr 37.5 mg PO HS RF: 0 polysaccharide iron complex [Ferrex 150] 150 mg iron Capsule 150 mg PO HS RF: 0 ondansetron 4 mg Tablet,Disintegrating 4 mg PO BID PRN (Reason: Nausea) RF: 0 glucosamine-chondroitin [Osteo Bi-Flex] 250-200 mg Tablet 1 tab PO BID RF: 0 cholecalciferol (vitamin D3) [Vitamin D3] 5,000 unit Tablet 5,000 unit PO DAILY RF: 0 Marek Multivitamin For Men 200-175-250 mcg Tablet 1 tab PO DAILY RF: 0 Xeljanz 10 mg Tablet 10 mg PO QAM RF: 0 warfarin [Jantoven] 5 mg tablet 10 mg PO SUTUTHSA RF: 0 warfarin 5 mg tablet 5 mg PO MOWEFR RF: 0
[2021-01-23] MEDS ORDERED: OPTIRAY 320 125ml IV ONE (15:21)
[2021-01-23 15:24] LABS: Basophils # (auto) 0.01 K/uL (0-0.2); Basophils % (auto) 0.1 %; Eosinophils # (auto) 0.07 K/uL (0-0.5); Eosinophils % (auto) 0.9 %; Hematocrit (blood only) 35.5 % (42-52); Hemoglobin 12.3 g/dL (14.0-18.0); Immature Granulocytes # (auto) 0.04 K/uL (0.00-0.02); Immature Granulocytes % (auto) 0.5 %; Lymphocytes # (auto) 1.83 K/uL (1.2-3.4); Lymphocytes % (auto) 23.1 %; Mean Corpuscular Hemoglobin 31.9 pg (25-34); Mean Corpuscular Hgb Conc 34.6 g/dL (32-36); Mean Corpuscular Volume 92.2 fL (80-100); Mean Platelet Volume 10.2 fL (7.4-10.4); Monocytes # (auto) 0.72 K/uL (0.11-0.59); Monocytes % (auto) 9.1 %; Neutrophils # (auto) 5.24 K/uL (1.4-6.5); Neutrophils % (auto) 66.3 %; Platelet Count 456 K/uL (130-400); RDW Coefficient of Variation 12.8 % (11.5-14.5); RDW Standard Deviation 43.2 fL (36.4-46.3); Red Blood Count 3.85 M/uL (4.7-6.1); White Blood Count 7.91 K/uL (4.8-10.8)
--- NOTE | 2021-01-23 15:30 | CT Scan Report ---
CT OF THE ABDOMEN AND PELVIS WITH CONTRAST CLINICAL HISTORY: Left lower quadrant abdominal pain. COMPARISON STUDY: CT of the abdomen and pelvis February 19, 2019. TECHNIQUE: Following IV administration of 120 mL of Optiray-320, axial images of the abdomen and pelv is were obtained from the lung bases to the proximal femurs. Images were reviewed in the axial, sagit tre, and coronal planes. IV contrast was administered without complication. Automated exposure contr ol was utilized for the study. A dose lowering technique was utilized adhering to the principles of ALARA. CT DOSE: 1739.09 mGy.cm FINDINGS: Lung bases are unremarkable. Prosthetic mitral valve is noted. There is mild cardiomegaly. No pneumatosis, free air or portal venous gas is present. There is no biliary ductal dilatation statu s post cholecystectomy. The liver, spleen, adrenal glands, kidneys and pancreas are unremarkable. The re is no peripancreatic infiltration. No hydronephrosis. There is extensive aortic atherosclerotic pl aque. The caliber of the abdominal aorta is normal. The appendix is normal. There is no evidence for a bowel obstruction. The caliber and wall thickness of small and large bowel are normal. A few coloni c diverticula are noted without evidence for acute diverticulitis. A moderate amount stool within the colon is noted. Bladder wall thickening is noted. Prostate is mildly enlarged. No ascites or lymphad enopathy is present. No acute fracture or suspicious lesion is identified. IMPRESSION: 1. No acute process within the abdomen or pelvis. 2. No bowel obstruction. No bowel wall thickening. 3. Bladder wall thickening. This is likely chronic but could be correlated with urinalysis. ACT 112: Negative or not required by law. Electronically signed by: Rojelio Land M.D. 01/23/2021 3:29 PM
--- NOTE | 2021-01-23 15:36 | CT Scan Report ---
UNENHANCED CT OF THE BRAIN; CT ANGIOGRAM OF THE BRAIN; CT ANGIOGRAM OF THE NECK CLINICAL HISTORY: Strokelike symptoms. COMPARISON STUDY: CT of the brain dated 03/01/2011 TECHNIQUE: Unenhanced axial CT scan of the brain is performed. Subsequently, following the IV adminis tration of 120 of Optiray 320, CT angiogram of the head and neck was performed from the aortic arch t o the vertex. Images are reviewed in the axial, sagittal, and coronal planes. 3-D MIPS images are cre ated and assessed. IV contrast was administered without complication. All measurements were calculate d based on NASCET criteria. A dose lowering technique was utilized adhering to the principles of ALA RA. FINDINGS: Brain parenchyma: There is age-related involutional change noting mild subcortical and periventricula r microangiopathic disease. There is no hemorrhage, mass effect, or evidence of acute territorial isc hemia by CT criteria. There is no evidence of enhancing mass lesion on the angiogram phase images. Th e ventricles, sulci, and cisterns are prominent secondary to involutional change. A chronic lacunar i nfarct is noted in the right cerebellar hemisphere. Buenrostro-white matter differentiation is preserved. N o extra-axial fluid collection is seen. Mineralization is noted in the basal ganglia. Thoracic aorta: Visualized portions of the thoracic aorta are normal in caliber. The aortic arch demo nstrates standard 3-vessel anatomy. Right carotid arterial system: The right common carotid artery is widely patent. Atherosclerotic plaq ue in the carotid bulb causes less than 50% luminal narrowing at the origin of the internal carotid a rtery. The remainder of the right internal carotid artery is clear, as is the right external carotid artery. Left carotid arterial system: The left common carotid artery is widely patent, as are the left internal controls consultant al and external carotid arteries. Minimal plaque is noted in the carotid bulb. Vertebral arteries: The vertebral arteries are widely patent bilaterally and codominant. Subclavian arteries: Widely patent bilaterally. Intracranial vasculature: There is atherosclerotic calcification of the cavernous carotid and vertebr al arteries. The internal carotid arteries are patent at the skull base with narrowing in the caver[place] us carotid region secondary to calcified and soft plaque. The anterior and middle cerebral arteries p atent bilaterally. The vertebrobasilar system and posterior cerebral arteries are widely patent. The vertebral arteries are codominant. There is no aneurysm, high-grade stenosis, or focal vessel cut off seen throughout the intracranial circulation. Jugular veins: Patent bilaterally. Dural sinuses: Patent. Lung apices: Partially visualized upper lobe lung parenchyma appears clear. Soft tissues: The visualized pharyngeal soft tissues are normal in appearance noting angiographic pha se technique. The oropharyngeal airway appears widely patent. Low-attenuation thyroid nodules measure up to 6 mm. The salivary glands are normal in appearance. No cervical lymphadenopathy is seen. Skeletal structures: The skeletal structures are osteopenic. The calvarium appears intact. The cervic al spine is maintained noting multilevel spondylosis. No lytic or blastic lesion is seen. Midline tootie rnotomy wires are noted. Orbits: The bony orbits are intact. Orbital contents are normal as visualized. Sinuses and mastoids: The paranasal sinuses are clear. The mastoid air cells are well pneumatized. IMPRESSION: 1. There is no hemorrhage, mass effect, or evidence of acute territorial ischemia by CT criteria. 2. Atherosclerotic plaque causes mild stenosis of the cavernous carotid arteries bilaterally. 3. Otherwise unremarkable CT angiogram of the brain. 4. Atherosclerotic plaque causes less than 50% stenosis at the origin of the right internal carotid a rtery. 5. Otherwise unremarkable CT angiogram of the neck. ACT 112: Negative or not required by law. Electronically signed by: Orville Santos M.D. 01/23/2021 3:34 PM
[2021-01-23 15:42] LABS: Alanine Aminotransferase 33 U/L (12-78); Albumin Level 3.6 gm/dl (3.4-5.0); Aspartate Aminotransferase 26 U/L (15-37); BUN Creatinine Ratio 15.6 (10-20); Blood Urea Nitrogen 21 mg/dl (7-18); Calcium 9.4 mg/dl (8.5-10.1); Carbon Dioxide 29 mmol/L (21-32); Chloride 107 mmol/L (98-107); Creatinine Clr Calc Pharmacy 45.9 ml/min; Est GFR (African American) 59.4; Est GFR (Non-African American) 51.3; Glucose 105 mg/dl (70-99); Magnesium 2.3 mg/dl (1.8-2.4); Potassium 4.8 mmol/L (3.5-5.1); Sodium 139 mmol/L (136-145)
[2021-01-23 15:43] LABS: INR 2.2 (0.9-1.1); Partial Thromboplastin Ratio 1.8; Prothrombin Time 20.9 Seconds (9.0-12.0)
[2021-01-23 15:47] LABS: Albumin Globulin Ratio 0.7 (0.9-2); Alkaline Phosphatase 62 U/L (45-117); Bilirubin,Total 0.5 mg/dl (0.2-1); Globulin 5.2 gm/dl (2.5-4.0); Total Protein 8.8 gm/dl (6.4-8.2); Troponin I < 0.015 ng/ml (0-0.045)
[2021-01-23 15:50] LABS: Partial Thromboplastin Time 48.1 Seconds (21.0-31.0)
--- NOTE | 2021-01-23 16:24 | History & Physical Report ---
Date of Service January 23, 2021 Assessment & Plan (1) Stroke-like symptoms: Symptoms now resolved. MRI brain w/o contrast Continue aspirin and warfarin. Continue Repatha Allow permissive hypertension - will hold his usual amlodipine. Will defer TTE to neurology as unlikely to change director Lipid panel and HbA1C with AM labs Consult neurology (2) Hypertension: Allow permissive hypertension. Hold amlodipine. Continue his usual metoprolol tartrate (3) Arm paresthesia, left: As above (4) Arm weakness: As above (5) Essential tremor: (6) S/P mitral valve replacement: Mechanical Aim INR 2.5-3.5 (7) Atrial fibrillation: Paroxysmal. Continue metoprolol tartrate 25mg PO BID. Continue usual dosing of warfarin. (8) Ankylosing spondylitis: Suspect patient left sided muscular pain is related to him being off Xeljanz for his recent COVID-19 vaccination. 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 UA pending for infection but given prior culture negative suspect this is much less likely. (9) CAD (coronary artery disease): Continue aspirin, metoprolol, Repatha, ranolazine. (10) DVT prophylaxis: Warfarin SCDs Admission and Anticipated Discharge Date Admission Date: January 23, 2021 History of Present Illness Primary Care Provider: Lexii Minor DO Robin Mccoy is a 75-year-old left handed male who presents to the ER with left hand weakness and numbness. Symptoms currently fully resolved on admission. He reports sudden onset numbness in left arm initially when he went to get hair cut around 8:50am. Approximately 9:30am he had a "funny feeling" across his head with bilateral blurred vision lasting for approximately 1 minute. He waited to go into the bank and his symptoms appared to resolve. However on going to sign a check at the bank he noted some clumsiness and weakness of his left hand about 10 minutes later. He feels his symptoms of left hand numbness and weakness fully resolved around 11:30am. On the persuasion of his family they recommended he comes to the ER for further evaluation. He reports a possible TIA/CVA during his surgery and post operative ICU admission after his mitral valve replacement surgery. But no residual symptoms from this. He does have a diagnosis of paroxysmal atrial fibrillation and is anticoagulated for this and his mechanical heart valve. He does report recent diagnosis of possible bladder infection diagnosed on Friday last week however subsequent culture showed no growth from urgent care. He has been having some LLQ pain for the last few weeks. On follow up with his PCP this was suspected to be muscular and he was prescribed a muscle relaxant without much effect. He denies any dysuria, fever or chills. He has notably been off his Xeljanz for ankylosing spondylitis for about half of the last 30 days dur to coming off when he received the COVID-19 vaccination. In the ER CT A/P showed some bladder wall thickening but no other acute pathology to explain his left flank pain. Regarding his stroke-like symptoms CT head, CTA head/neck showed mild stenosis only with no intracranial acute abnormality. He was referred to medicine for admission and ongoing management of left upper extremity numbness and weakness. Allergies Allergy/AdvReac Type Severity Reaction Status Date / Time adalimumab Allergy Severe NEUROPATHY/STIFF/SORE Verified 01/23/21 15:22 HANDS/FEET; PARKINSONS; CARPAL TUNNEL infliximab Allergy Severe NEUROPATHY/STIFF/SORE Verified 01/23/21 15:22 HANDS/FEET; PARKINSONS; CARPAL TUNNEL latex Allergy Mild RASH Verified 01/23/21 15:22 Sulfa (Sulfonamide Allergy Mild RASH/ITCH Verified 01/23/21 15:22 Antibiotics) benzyl alcohol Allergy Unknown NEUROPATHY/STIFF/SORE Verified 01/23/21 15:22 HANDS/FEET; PARKINSONS; CARPAL TUNNEL etanercept Allergy Unknown NEUROPATHY;STIFF/SORE Verified 01/23/21 15:22 HANDS/FEET; PARKINSONS; CARPAL TUNNEL mouse protein Allergy Unknown NEUROPATHY Verified 01/23/21 15:22 secukinumab Allergy Unknown NEUROPATHY Verified 01/23/21 15:22 sorbitan esters Allergy Unknown NEUROPATHY Verified 01/23/21 15:22 tromethamine Allergy Unknown NEUROPATHY/STIFF/SORE Verified 01/23/21 15:22 HANDS/FEET duloxetine [From Cymbalta] AdvReac Severe Nausea Verified 01/19/21 14:41 albuterol [From ProAir HFA] AdvReac Mild Tachycardia Verified 01/19/21 14:41 lisinopril AdvReac Unknown COUGH,SLUSHING Verified 01/19/21 14:41 NOISE IN EARS [id number]-[id number] Reductase AdvReac Unknown Myalgia Verified 01/19/21 14:41 Inhibitor Home Medications Medication Instructions Recorded Confirmed Type aspirin 81 mg tablet,delayed 81 mg PO HS tab 05/05/19 01/23/21 History release cyclosporine 0.05 % eye drops in a 1 drops OP Q12H ea 05/05/19 01/23/21 History dropperette cholecalciferol (vitamin D3) 5,000 unit PO DAILY 08/16/19 01/23/21 History [Vitamin D3] glucosamine-chondroitin [Osteo 1 tab PO BID 08/16/19 01/23/21 History Bi-Flex] [id number] 1 tab PO DAILY 08/16/19 01/23/21 History [Marek Multivitamin For Men] ondansetron 4 mg PO BID PRN 08/16/19 01/23/21 History polysaccharide iron complex 150 mg PO HS 08/16/19 01/23/21 History [Ferrex 150] tofacitinib [Xeljanz] 10 mg PO QAM 08/16/19 01/23/21 History venlafaxine 37.5 mg PO HS 08/16/19 01/23/21 History calcium carbonate 500 mg (1,250 1 tab PO BID 04/11/20 01/23/21 History mg)-vitamin D3 200 unit tablet diclofenac sodium 1 % topical gel 4 gm TOP QID PRN 04/11/20 01/23/21 History omega-3 fatty acids 1,000 mg 1,000 mg PO DAILY 04/11/20 01/23/21 History capsule oxycodone-acetaminophen 5 mg-325 1 tab PO Q6H PRN 04/11/20 01/23/21 History mg tablet temazepam 15 mg capsule 15 mg PO HS cap 04/11/20 01/23/21 History evolocumab 140 mg/mL subcutaneous See Rx Instructions .ROUTE 10/09/20 01/23/21 Rx pen injector .COMPLEX #2 milliliter amlodipine 10 mg tablet 10 mg PO QAM #90 tab 10/12/20 01/23/21 Rx metoprolol tartrate 25 mg tablet 25 mg PO BID #180 tab 10/12/20 01/23/21 Rx ranolazine 1,000 mg 1,000 mg PO QAM #90 tab 10/12/20 01/23/21 Rx tablet,extended release,12 hr ranolazine 500 mg tablet,extended 500 mg PO QPM #90 tab 10/12/20 01/23/21 Rx release,12 hr sennosides 8.6 mg tablet 8.6 mg PO DAILY PRN #30 tab 10/24/20 01/23/21 Rx pantoprazole 40 mg tablet,delayed 40 mg PO DAILY #90 tab 11/22/20 01/23/21 Rx release famotidine 40 mg tablet 40 mg PO HS #30 tab 12/07/20 01/23/21 Rx baclofen 5 mg tablet 5 mg PO TID PRN #30 tab 01/19/21 01/23/21 Rx cephalexin 500 mg capsule 500 mg PO BID 01/19/21 01/23/21 History warfarin 5 mg PO MOWEFR 01/23/21 01/23/21 History warfarin [Jantoven] 10 mg PO SUTUTHSA 01/23/21 01/23/21 History Past Med/Surg History Medical History Anemia Angina pectoris Ankylosing spondylitis Atrial fibrillation Dukes's esophagus CAD (coronary artery disease) Carotid artery plaque Chronic constipation CKD (chronic kidney disease) stage 3, GFR 30-59 ml/min Dyslipidemia Esophageal reflux Essential tremor Gout Hiatal hernia History of basal cell carcinoma (BCC) of skin Hyperproteinemia Hypertension Insomnia retirement (current) use of anticoagulants Osteoarthritis Osteopenia Peripheral neuropathy Raynauds phenomenon Rheumatoid arthritis Transient ischemic attack (TIA) (2005) Surgical History History of cardiac cath (12/2005) History of esophagogastroduodenoscopy (EGD) S/P CABG (coronary artery bypass graft) (12/2005) S/P cholecystectomy S/P mitral valve replacement (12/2005) S/P Mohs surgery for basal cell carcinoma Family History Uncle Myocardial infarction Aunt Myocardial infarction Grandfather (Maternal) Myocardial infarction Mother Breast cancer Diabetes Lung cancer Hypertension Brother Heart disease Diabetes Grandfather (Paternal) Cancer Grandmother (Maternal) Cancer Daughter Ankylosing spondylitis Asthma Father Cancer Liver Lung cancer Stroke Social History Smoking Status: Never smoker Second Hand Exposure: Yes (hx); Do You Dip or Chew Tobacco: No; Hx Alcohol Use: No Hx Substance Use: No Preferred Language: Georgian Communication Ability: Effective Visual Impairment: No Limitations Hearing Ability: Normal Mechanical Process Engineer Required: No Beliefs That Will Affect Care: None marital status: Current Living Situation: Spouse current occupational status: retired Other Information That Helps Us Care for You: No Feels Safe at Home: Yes Safety Concerns: Feels Safe At This Time Childhood Exposure to Second-Hand Smoke: Yes caffeine: Yes (very limited) during the past year weight has: increased > 10 lbs Dental Care, Regularly: Yes Physical Activity Frequency: Daily Physical Activity Frequency Comment: tread mill, walking ,weight lifting Seatbelt Use: always Sunscreen Use: Yes Assistive Devices: Glasses Review of Systems Review of Systems: All systems reviewed & are unremarkable except as noted in HPI & below Genitourinary: + flank pain (left); no dysuria, no difficulty urinating, no urinary frequency, no urinary hesitancy, no urinary incontinence and no hematuria Musculoskeletal: Left flank pain on deep palpation Physical Exam Constitutional: WD/WN, vitals as above Eyes: PERRL, conjunctivae normal, anicteric sclerae ENMT: external ear and nose normal, oropharynx normal Neck: trachea midline Respiratory: normal respiratory effort, lungs clear to auscultation Cardiovascular: Rate/Rhythm: regular rate and regular rhythm Heart Sounds: + click Extremities: normal capillary refill; no pedal edema Gastrointestinal (Abdomen): normal bowel sounds, soft, nontender, no hepatosplenomegaly Musculoskeletal: no cyanosis or clubbing, extremities motor strength 5/5 Skin: no rashes, warm and dry Neurologic: moves all extremities and awake; no focal motor deficits and not confused Speech / Cognition: normal speech Motor/Sensory: no pronator drift and no sensory deficit Cranial Nerves: PERRL, EOM intact bilaterally, normal facial strength, able to elevate shoulders bilaterally, no nystagmus and symmetric palate elevation Psychiatric: A+Ox3, euthymic affect Results & Data Results & Data ([facility]) Vital Signs (Past 12 Hours) Vital Signs Temp Pulse Resp BP Pulse Ox 01/23/21 12:57 36.2 C L 62 20 118/71 99 Diagnostic Findings UNENHANCED CT OF THE BRAIN; CT ANGIOGRAM OF THE BRAIN; CT ANGIOGRAM OF THE NECK IMPRESSION: 1. There is no hemorrhage, mass effect, or evidence of acute territorial i schem[place] by CT criteria. 2. Atherosclerotic plaque causes mild stenosis of the cavernous carotid arteries bilaterally. 3. Otherwise unremarkable CT angiogram of the brain. 4. Atherosclerotic plaque causes less than 50% stenosis at the origin of the right internal carotid artery. 5. Otherwise unremarkable CT angiogram of the neck. XR chest 1V portable IMPRESSION: No acute process CT OF THE ABDOMEN AND PELVIS WITH CONTRAST IMPRESSION: 1. No acute process within the abdomen or pelvis. 2. No bowel obstruction. No bowel wall thickening. 3. Bladder wall thickening. This is likely chronic but could be correlated with urinalysis. Medications Administered ER Medications Given: None ECG Indication: other (Stroke-like symptoms) Rate (beats per minute): 60 Findings: no acute ischemic change Comparison ECG Date: no prior available Code Status & VTE Plan Code Status Full VTE Prophylaxis Plan VTE Prophylaxis will be ordered: Yes PG Care Time/CCT Total # of Minutes Spent Total Time Spent with Patient: Total time spent is greater than 50% in coordination of care (as documented) at patient's floor/unit and/or counseling patient: Coding Level of Care Code 13026 OBS Care - Level 3 Diagnoses Stroke-like symptoms R29.90 Hypertension I10 Arm paresthesia, left R20.2 Arm weakness R29.898 Essential tremor G25.0 S/P mitral valve replacement Z95.2 Atrial fibrillation I48.91 Ankylosing spondylitis M45.9 CAD (coronary artery disease) I25.10 DVT prophylaxis Z29.9
[2021-01-23 16:50] LABS: Influenza A virus by PCR Negative (Neg); Influenza B virus by PCR Negative (Neg); RSV by PCR Negative (Neg); SARS CoV2 RNA(COVID-19) InHosp NEGATIVE (Negative)
--- NOTE | 2021-01-23 17:17 | XRay Report ---
XR chest 1V portable HISTORY: Stroke symptoms. COMPARISON: None. FINDINGS: No pneumothorax. No pleural effusion is. The heart is top normal in size. There are postste rnotomy changes and a cardiac valve prosthesis. No focal lung consolidations to suggest pneumonia. No evidence for pulmonary edema. IMPRESSION: No acute process. ACT 112: Negative or not required by law. Electronically signed by: Balaji Miles M.D. 01/23/2021 5:16 PM
[2021-01-23] MEDS ORDERED: DICLOFENAC SOD 1% GEL 100 GM TUBE EXT PRN (20:24)
[2021-01-23] MEDS ORDERED: ACETAMINOPHEN 325 MG TAB PO PRN (20:24)
[2021-01-23] MEDS ORDERED: oxyCODONE/ACETAMINOPHEN 5mg/325mg TAB PO PRN (20:24)
[2021-01-23] MEDS ORDERED: BACLOFEN 10 MG TAB PO PRN (20:24)
[2021-01-23] MEDS ORDERED: PHARMACIST DISCHARGE MED REC CONSULT PRN (20:24)
[2021-01-23] MEDS ORDERED: WARFARIN SOD 10 MG TAB PO SCH (20:24)
[2021-01-23] MEDS ORDERED: SENNA 8.6 MG TAB PO PRN (20:24)
[2021-01-23] MEDS ORDERED: RANOLAZINE 500 MG ER TAB PO SCH (21:00)
[2021-01-23] MEDS ORDERED: ASPIRIN 81 MG ECTAB PO SCH (21:00)
[2021-01-23] MEDS ORDERED: NON-FORMULARY MEDICATION (Glucosamine-Chondroitin [Osteo Bi-Flex] 250-200 mg Tablet) PO SCH (21:00)
[2021-01-23] MEDS ORDERED: VENLAFAXINE HCL XR 37.5 MG CAPXR PO SCH (21:00)
[2021-01-23] MEDS ORDERED: FAMOTIDINE 40 MG TABLET PO SCH (21:00)
[2021-01-23] MEDS ORDERED: IRON POLYSACCHARIDE COMPLEX 150 MG CAPSULE PO SCH (21:00)
[2021-01-23] MEDS ORDERED: TEMAZEPAM 15 MG CAPSULE PO SCH (21:00)
[2021-01-23] MEDS: CALCIUM 600MG + VIT D 400 IU TAB PO SCH (21:23)
[2021-01-23] MEDS: METOPROLOL TARTRATE 25 MG TAB PO SCH (21:24)
--- NOTE | 2021-01-24 07:05 | Magnetic Resonance Report ---
MR brain wo con HISTORY: 75 years-old Male LUE numbness and weakness acute strokelike symptoms COMPARISON: Head CT of same day TECHNIQUE: Multiplanar multisequence MRI of the brain was obtained without the use of IV contrast. FINDINGS: Humanities Department Chair localizer images demonstrate no gross extracranial abnormality. No restricted diffusion to sugg est acute or subacute infarct. There is no acute intracranial hemorrhage, midline shift, abnormal ext ra-axial collection, hydrocephalus or intracranial mass. Cerebral venous sinuses and major arterial f low voids are patent. Mastoid air cells and paranasal sinuses are clear. The skull, orbits and soft t issues are within normal limits. Mild age-related involutional changes. Subcentimeter chronic lacunar infarct of the right cerebellar hemisphere. Moderate scattered T2/FLAIR hyperintensities throughout the white matter. IMPRESSION: 1. No acute intracranial abnormality, specifically there is no acute or subacute infarct. 2. Age-related involutional changes with moderate chronic microvascular ischemic disease. ACT 112: Negative or not required by law. The above report was generated using voice recognition software. It may contain grammatical, syntax o r spelling errors. Electronically signed by: Eliseo Slade M.D. 01/24/2021 7:04 AM
[2021-01-24 07:13] LABS: Basophils # (auto) 0.01 K/uL (0-0.2); Basophils % (auto) 0.1 %; Eosinophils # (auto) 0.09 K/uL (0-0.5); Hematocrit (blood only) 37.7 % (42-52); Hemoglobin 13.1 g/dL (14.0-18.0); Immature Granulocytes # (auto) 0.04 K/uL (0.00-0.02); Immature Granulocytes % (auto) 0.5 %; Lymphocytes # (auto) 1.58 K/uL (1.2-3.4); Lymphocytes % (auto) 18.3 %; Mean Corpuscular Hemoglobin 31.9 pg (25-34); Mean Corpuscular Hgb Conc 34.7 g/dL (32-36); Mean Corpuscular Volume 91.7 fL (80-100); Mean Platelet Volume 10.2 fL (7.4-10.4); Monocytes # (auto) 0.73 K/uL (0.11-0.59); Monocytes % (auto) 8.5 %; Neutrophils # (auto) 6.17 K/uL (1.4-6.5); Neutrophils % (auto) 71.6 %; Platelet Count 480 K/uL (130-400); RDW Coefficient of Variation 12.8 % (11.5-14.5); Red Blood Count 4.11 M/uL (4.7-6.1); White Blood Count 8.62 K/uL (4.8-10.8)
[2021-01-24 07:28] LABS: INR 2.1 (0.9-1.1); Prothrombin Time 20.4 Seconds (9.0-12.0)
[2021-01-24 07:46] LABS: BUN Creatinine Ratio 14.9 (10-20); Calcium 9.7 mg/dl (8.5-10.1); Creatinine Clr Calc Pharmacy 45.8 ml/min; Est GFR (African American) 59.9; Est GFR (Non-African American) 51.7; Potassium 4.4 mmol/L (3.5-5.1)
[2021-01-24 08:03] LABS: Estimated Average Glucose 114 mg/dl; Hemoglobin A1C 5.6 % (4.5-5.6)
[2021-01-24] MEDS: METOPROLOL TARTRATE 25 MG TAB PO SCH (08:07)
[2021-01-24] MEDS: CALCIUM 600MG + VIT D 400 IU TAB PO SCH (08:08)
[2021-01-24] MEDS ORDERED: RANOLAZINE 500 MG ER TAB PO SCH (09:00)
[2021-01-24] MEDS ORDERED: PANTOprazole 40 MG TAB PO SCH (09:00)
[2021-01-24] MEDS ORDERED: OMEGA-3 (PURIFIED FISH OIL) 1 GM CAP PO SCH (09:00)
[2021-01-24] MEDS ORDERED: MULTIVITAMIN TAB PO SCH (09:00)
[2021-01-24] MEDS ORDERED: CHOLECALCIFEROL 1,000 UNITS 25 MCG TAB PO SCH (09:00)
[2021-01-24 09:31] LABS: Appearance Urine Clear (Clear); Bacteria Urine Automated Negative (Negative); Blood Urine Negative (Negative); Color Urine Dark Yellow; Glucose Urine UA Negative (Negative); Ketones Urine Trace (Negative); Leukocyte Esterase Urine Trace (Negative); Nitrite Urine Negative (Negative); Protein Urine Trace (Negative); Specific Gravity Urine 1.034 (1.000-1.030); Urobilinogen Urine Negative (Negative)
[2021-01-24 09:33] LABS: Bilirubin Urine 1+ (Negative)
--- NOTE | 2021-01-24 15:02 | Neurology Consultation ---
Date of Consultation January 24, 2021 Assessment & Plan (1) Stroke-like symptoms: Robin Mccoy is a 75 yo man w/ PMH of anemia, HLD, HTN, GERD, essential tremor, neuropathy, CKDIII, CAD s/p CABG, h/o TIA in 2005, RA/ankylosing spondylitis on xeljanz/evolocumab, and Afib on ASA/warfarin who p/t [facility] with subacute onset of LUE numbness followed by LUE weakness. # ?TIA: given subacute nature of symptoms, less likely that this was a TIA but has significant risk factors for this. Would be more c/f possible radiculopathy process with positional component given h/o /RA and increased risk of bony abnormalities that could be causing cervical spinal stenosis or neuroforaminal stenosis -Continue aspirin 81 mg daily and warfarin for AP/AC -Work with PCP on stroke prevention goals including A1c less than 7, LDL less than 70, BP less than 130/80 -Discussed stroke prevention including daily exercise and adoption of the Mediterranean diet -Recommend that PCP obtain cervical x-ray to rule out any significant cervical ankylosis could be compressing either the spinal cord or causing neuroforaminal stenosis -No neurology follow-up needed Thank you for this interesting consult. Plan of care discussed with primary team. Please call or text with questions. (2) Arm paresthesia, left: History of Present Illness Attending Physician: Conner Buckner, DO History of Present Illness Robin Mccoy is a 75 yo man w/ PMH of anemia, HLD, HTN, GERD, essential tremor, neuropathy, CKDIII, CAD s/p CABG, h/o TIA in 2005, RA/ankylosing spondylitis on xeljanz/evolocumab, and Afib on ASA/warfarin who p/t [facility] with subacute onset of LUE numbness followed by LUE weakness. METAL RECLAMATION KETTLE TENDER ~9am on 01/23/21. In the ED, he was afebrile, BP 118/71, heart rate 62, respiratory 20, satting 99% on room air. Labs notable for WBC 7.91, hemoglobin low at 12.3 with MCV 92.2, platelets elevated 456, sodium 139, potassium 4.8, creatinine 1.36, glucose 105, INR 2.2, calcium/magnesium within normal, LFTs within normal, troponin negative, Covid negative, albumin 3.6, UA no infection. Imaging independently reviewed. CT head shows no hemorrhage, small chronic right cerebellar stroke, trace calcification in bilateral basal ganglia, mild to moderate generalized atrophy with ex vacuo dilation. CTA H&N shows no LVO, high grade stenosis or aneurysm. MRI brain shows no acute infarct, chronic small right cerebellar infarct, no prior hemorrhage or hemosiderin staining noted, moderate generalized atrophy with ex vacuo dilation, and moderate SVID. On examination, he reports that he was in his normal state of health until yesterday morning when he went for haircut. Notes that he has an acute onset of left upper extremity numbness that lasted maybe 30 minutes before resolving. He then went to the bank and was writing a check when he noticed some clumsiness with his left hand that also resolved after a few minutes. Endorses being on aspirin and warfarin at home with no recent missed doses. Does note that last week he was having some lower back pain and was diagnosed with UTI so was on Keflex briefly before seeing PCP and being given Flexeril. He notes that he tr ied the Flexeril the night before the event and made him feel "high". Allergies Allergy/AdvReac Type Severity Reaction Status Date / Time adalimumab Allergy Severe NEUROPATHY/STIFF/SORE Verified 01/23/21 15:22 HANDS/FEET; PARKINSONS; CARPAL TUNNEL infliximab Allergy Severe NEUROPATHY/STIFF/SORE Verified 01/23/21 15:22 HANDS/FEET; PARKINSONS; CARPAL TUNNEL latex Allergy Mild RASH Verified 01/23/21 15:22 Sulfa (Sulfonamide Allergy Mild RASH/ITCH Verified 01/23/21 15:22 Antibiotics) benzyl alcohol Allergy Unknown NEUROPATHY/STIFF/SORE Verified 01/23/21 15:22 HANDS/FEET; PARKINSONS; CARPAL TUNNEL etanercept Allergy Unknown NEUROPATHY;STIFF/SORE Verified 01/23/21 15:22 HANDS/FEET; PARKINSONS; CARPAL TUNNEL mouse protein Allergy Unknown NEUROPATHY Verified 01/23/21 15:22 secukinumab Allergy Unknown NEUROPATHY Verified 01/23/21 15:22 sorbitan esters Allergy Unknown NEUROPATHY Verified 01/23/21 15:22 tromethamine Allergy Unknown NEUROPATHY/STIFF/SORE Verified 01/23/21 15:22 HANDS/FEET duloxetine [From Cymbalta] AdvReac Severe Nausea Verified 01/19/21 14:41 albuterol [From ProAir HFA] AdvReac Mild Tachycardia Verified 01/19/21 14:41 lisinopril AdvReac Unknown COUGH,SLUSHING Verified 01/19/21 14:41 NOISE IN EARS Pphjgyo-Xcp-Ncf Reductase AdvReac Unknown Myalgia Verified 01/19/21 14:41 Inhibitor Home Medications Medication Instructions Recorded Confirmed Type aspirin 81 mg tablet,delayed 81 mg PO HS tab 05/05/19 01/23/21 History release cyclosporine 0.05 % eye drops in a 1 drops OP Q12H ea 05/05/19 01/23/21 History dropperette Marek Multivitamin For Men 1 tab PO DAILY 08/16/19 01/23/21 History Xeljanz 10 mg PO QAM 08/16/19 01/23/21 History cholecalciferol (vitamin D3) 5,000 unit PO DAILY 08/16/19 01/23/21 History [Vitamin D3] glucosamine-chondroitin [Osteo 1 tab PO BID 08/16/19 01/23/21 History Bi-Flex] ondansetron 4 mg PO BID PRN 08/16/19 01/23/21 History polysaccharide iron complex 150 mg PO HS 08/16/19 01/23/21 History [Ferrex 150] venlafaxine 37.5 mg PO HS 08/16/19 01/23/21 History calcium carbonate 500 mg (1,250 1 tab PO BID 04/11/20 01/23/21 History mg)-vitamin D3 200 unit tablet diclofenac sodium 1 % topical gel 4 gm TOP QID PRN 04/11/20 01/23/21 History omega-3 fatty acids 1,000 mg 1,000 mg PO DAILY 04/11/20 01/23/21 History capsule oxycodone-acetaminophen 5 mg-325 1 tab PO Q6H PRN 04/11/20 01/23/21 History mg tablet temazepam 15 mg capsule 15 mg PO HS cap 04/11/20 01/23/21 History evolocumab 140 mg/mL subcutaneous See Rx Instructions .ROUTE 10/09/20 01/23/21 Rx pen injector .COMPLEX #2 milliliter amlodipine 10 mg tablet 10 mg PO QAM #90 tab 10/12/20 01/23/21 Rx metoprolol tartrate 25 mg tablet 25 mg PO BID #180 tab 10/12/20 01/23/21 Rx ranolazine 1,000 mg 1,000 mg PO QAM #90 tab 10/12/20 01/23/21 Rx tablet,extended release,12 hr ranolazine 500 mg tablet,extended 500 mg PO QPM #90 tab 10/12/20 01/23/21 Rx release,12 hr sennosides 8.6 mg tablet 8.6 mg PO DAILY PRN #30 tab 10/24/20 01/23/21 Rx pantoprazole 40 mg tablet,delayed 40 mg PO DAILY #90 tab 11/22/20 01/23/21 Rx release famotidine 40 mg tablet 40 mg PO HS #30 tab 12/07/20 01/23/21 Rx baclofen 5 mg tablet 5 mg PO TID PRN #30 tab 01/19/21 01/23/21 Rx cephalexin 500 mg capsule 500 mg PO BID 01/19/21 01/23/21 History warfarin 5 mg PO MOWEFR 01/23/21 01/23/21 History warfarin [Jantoven] 10 mg PO SUTUTHSA 01/23/21 01/23/21 History Patient History Medical History Anemia Angina pectoris Ankylosing spondylitis Atrial fibrillation Dukes's esophagus borderline CAD (coronary artery disease) Carotid artery plaque Chronic constipation CKD (chronic kidney disease) stage 3, GFR 30-59 ml/min Dyslipidemia Esophageal reflux Essential tremor Gout hx x1 Hiatal hernia History of basal cell carcinoma (BCC) of skin Hyperproteinemia Hypertension Insomnia longterm (current) use of anticoagulants Osteoarthritis Osteopenia Peripheral neuropathy Raynauds phenomenon Rheumatoid arthritis Transient ischemic attack (TIA) (2005) 2005, during and/or after CABG at [facility]. no problems since Surgical History History of cardiac cath (12/2005) PCI of RCA complicated by perforation of RCA causing tamponade, RCA distribution/papillary musc ischemia causing severe MR needing emergent 2 vessel CABG History of esophagogastroduodenoscopy (EGD) S/P CABG (coronary artery bypass graft) (12/2005) Emergent post cath, 2 vess SVG to PDA, SVG to distal RCA S/P cholecystectomy S/P mitral valve replacement (12/2005) d/t severe mitral regurgitation post cath, replaced w/ mechanical valve S/P Mohs surgery for basal cell carcinoma Family History Uncle Myocardial infarction Aunt Myocardial infarction Grandfather (Maternal) Myocardial infarction Mother Breast cancer Diabetes Lung cancer Hypertension Brother Heart disease Diabetes Grandfather (Paternal) Cancer Grandmother (Maternal) Cancer Daughter Ankylosing spondylitis Asthma Father Cancer Liver Lung cancer Stroke Social History Smoking Status: Never smoker Second Hand Exposure: Yes (hx); Do You Dip or Chew Tobacco: No; Hx Alcohol Use: No Hx Substance Use: No Preferred Language: Uzbek Communication Ability: Effective Visual Impairment: No Limitations Hearing Ability: Normal Container Finisher Required: No Beliefs That Will Affect Care: None marital status: Current Living Situation: Spouse current occupational status: retired Other Information That Helps Us Care for You: No Feels Safe at Home: Yes Safety Concerns: Feels Safe At This Time Childhood Exposure to Second-Hand Smoke: Yes caffeine: Yes (very limited) during the past year weight has: increased > 10 lbs Dental Care, Regularly: Yes Physical Activity Frequency: Daily Physical Activity Frequency Comment: tread mill, walking ,weight lifting Seatbelt Use: always Sunscreen Use: Yes Assistive Devices: Glasses Review of Systems Review of Systems: 14 point review of systems completed and negative except as in HPI. Exam (Neuro) Physical Exam: General Exam: GEN: NAD, sitting in chair HEENT: No conjunctival injection, no rhinorrhea. CV: RRR on monitor, no significant edema. PULM: Nonlabored respirations on room air. Neuro Exam: MS: Awake and Alert. Oriented to person, place, and date. Speech fluent and appropriate without dysarthria or paraphasic errors. Language intact including naming, comprehension, repetition. Cognition and memory grossly intact. Attention intact. No neglect. CN: Visual pitt full, + blink to threat bilaterally. No extinction to double simultaneous stimuli. Unable to visualize fundi on fundoscopic exam. PERRLA OU. EOMI without nystagmus. Facial sensation intact to LT. Facial muscles full and symmetric. Hearing intact to finger rub bilaterally. Uvula midline with symmetric palatal elevation. Shoulder shrug normal. Tongue midline. MOTOR: Normal bulk and tone. No pronator drift. BUE strength 5/5 at deltoids, biceps, triceps, wrist flexors and extensors, and finger flexors bilaterally. BLE strength 5/5 at iliopsoas, hamstrings, quadriceps, tibialis anterior, and gastrocnemius bilaterally. REFLEXES: 2+ at biceps, triceps, brachioradialis, 2+ and brisk patella, and 1+ Achilles bilaterally. Flexor plantar responses bilaterally. SENSORY: Intact to LT/vibration throughout, no extinction to double simultaneous stimuli. COORDINATION: No dysmetria or ataxia on bckiyv-cp-ybba bilaterally. Normal Cyndie bilaterally. GAIT: Deferred due to physical status. NIH STROKE SCALE 1A. Level of Consciousness (0-3) = 0 1B. LOC Questions (0-2) = 0 1C. LOC Commands (0-2) = 0 2. Best Horizontal Gaze (0-2) = 0 3. Visual Pitt (0-3) = 0 4. Facial Palsy (0-3) = 0 5. Motor Arm Right (0-4) = 0 Left (0-4) = 0 6. Motor Leg Right (0-4) = 0 Left (0-4) = 0 7. Limb Ataxia (0-2) = 0 8. Sensory (0-2) = 0 9. Best Language (0-3) = 0 10. Dysarthria (0-2) = 0 11. Extinction and Inattention (0-2) = 0 NIHSS TOTAL = 0 Results & Data ([facility]) Vital Signs (Past 12 Hours) Vital Signs Temp Pulse Pulse Resp BP Pulse Ox 01/24/21 11:34 36.7 C 69 19 119/72 98 01/24/21 08:00 70 01/24/21 07:25 36.8 C 75 18 134/75 96 01/24/21 03:23 36.8 C 67 18 123/65 97 PG Care Time/CCT Total # of Minutes Spent Total Time Spent with Patient: Total time spent is greater than 50% in coordination of care (as documented) at patient's floor/unit and/or counseling patient: Coding Level of Care Code 85387 Office/Outpt Visit, New Diagnoses Stroke-like symptoms R29.90 Arm paresthesia, left R20.2
[2021-01-24] MEDS ORDERED: WARFARIN SOD 5 MG TAB PO SCH (16:00)
[2021-01-24] MEDS ORDERED: STROKE PATIENT DISCHARGE STA (16:31)
--- NOTE | 2021-01-24 16:34 | Discharge Summary ---
Date of Service January 24, 2021 Admission HPI Per Admitting Provider Robin Mccoy is a 75-year-old left handed male who presents to the ER with left hand weakness and numbness. Symptoms currently fully resolved on admission. He reports sudden onset numbness in left arm initially when he went to get hair cut around 8:50am. Approximately 9:30am he had a "funny feeling" across his head with bilateral blurred vision lasting for approximately 1 minute. He waited to go into the bank and his symptoms appared to resolve. However on going to sign a check at the bank he noted some clumsiness and weakness of his left hand about 10 minutes later. He feels his symptoms of left hand numbness and weakness fully resolved around 11:30am. On the persuasion of his family they recommended he comes to the ER for further evaluation. He reports a possible TIA/CVA during his surgery and post operative ICU admission after his mitral valve replacement surgery. But no residual symptoms from this. He does have a diagnosis of paroxysmal atrial fibrillation and is anticoagulated for this and his mechanical heart valve. He does report recent diagnosis of possible bladder infection diagnosed on Friday last week however subsequent culture showed no growth from urgent care. He has been having some LLQ pain for the last few weeks. On follow up with his PCP this was suspected to be muscular and he was prescribed a muscle relaxant without much effect. He denies any dysuria, fever or chills. He has notably been off his Xeljanz for ankylosing spondylitis for about half of the last 30 days dur to coming off when he received the COVID-19 vaccination. In the ER CT A/P showed some bladder wall thickening but no other acute pathology to explain his left flank pain. Regarding his stroke-like symptoms CT head, CTA head/neck showed mild stenosis only with no intracranial acute abnormality. He was referred to medicine for admission and ongoing management of left upper extremity numbness and weakness. Admission Exam Per Admitting Provider Constitutional: WD/WN, vitals as above Eyes: PERRL, conjunctivae normal, anicteric sclerae ENMT: external ear and nose normal, oropharynx normal Neck: trachea midline Respiratory: normal respiratory effort, lungs clear to auscultation Cardiovascular: Rate/Rhythm: regular rate and regular rhythm Heart Sounds: + click Extremities: normal capillary refill; no pedal edema Gastrointestinal (Abdomen): normal bowel sounds, soft, nontender, no hepatosplenomegaly Musculoskeletal: no cyanosis or clubbing, extremities motor strength 5/5 Skin: no rashes, warm and dry Neurologic: moves all extremities and awake; no focal motor deficits and not confused Speech / Cognition: normal speech Motor/Sensory: no pronator drift and no sensory deficit Cranial Nerves: PERRL, EOM intact bilaterally, normal facial strength, able to elevate shoulders bilaterally, no nystagmus and symmetric palate elevation Psychiatric: A+Ox3, euthymic affect Principal Diagnosis Transischemic attack Discharge Exam GENERAL : No acute distress EYES: No icterus, gaze conjugate NOSE: No evidence of epistaxis MOUTH: No lesions or candidiasis NECK: Supple LUNGS: CTA B/L, no wheezes, rales or rhonchi HEART: Regular, rate controlled ABDOMEN: Soft, NT, ND, BS Present EXTREMITIES: No LE edema, pedal pulses intact NEURO: A&OX3. No residual effects neurologically. Patient has been standing or walking around all day. Observed several times as I was seeing patients roommate and passing by the room in the hallway. Cranial nerves II through XII appear intact without any focal deficit Discharge Data Allergies Allergy/AdvReac Type Severity Reaction Status Date / Time adalimumab Allergy Severe NEUROPATHY/STIFF/SORE Verified 02/01/21 09:19 HANDS/FEET; PARKINSONS; CARPAL TUNNEL infliximab Allergy Severe NEUROPATHY/STIFF/SORE Verified 02/01/21 09:19 HANDS/FEET; PARKINSONS; CARPAL TUNNEL latex Allergy Mild RASH Verified 02/01/21 09:19 Sulfa (Sulfonamide Allergy Mild RASH/ITCH Verified 02/01/21 09:19 Antibiotics) benzyl alcohol Allergy Unknown NEUROPATHY/STIFF/SORE Verified 02/01/21 09:19 HANDS/FEET; PARKINSONS; CARPAL TUNNEL etanercept Allergy Unknown NEUROPATHY;STIFF/SORE Verified 02/01/21 09:19 HANDS/FEET; PARKINSONS; CARPAL TUNNEL mouse protein Allergy Unknown NEUROPATHY Verified 02/01/21 09:19 secukinumab Allergy Unknown NEUROPATHY Verified 02/01/21 09:19 sorbitan esters Allergy Unknown NEUROPATHY Verified 02/01/21 09:19 tromethamine Allergy Unknown NEUROPATHY/STIFF/SORE Verified 02/01/21 09:19 HANDS/FEET duloxetine [From Cymbalta] AdvReac Severe Nausea Verified 04/22/21 09:19 albuterol [From ProAir HFA] AdvReac Mild Tachycardia Verified 02/01/21 09:19 lisinopril AdvReac Unknown COUGH,SLUSHING Verified 02/01/21 09:19 NOISE IN EARS Auegsxo-Apz-Wrx Reductase AdvReac Unknown Myalgia Verified 02/01/21 09:19 Inhibitor Consultations 01/23/21 16:06 ED Decision to Admit Stat 01/23/21 20:24 Consult Neurology Routine Ordered Studies 01/23/21 14:55 CT angio head w con Stat CT angio neck with con Stat CT head/brain wo con Stat 01/23/21 15:01 CT abd pelvis IV con only Stat 01/23/21 20:24 MR brain wo con Routine Diagnostic Findings UNENHANCED CT OF THE BRAIN; CT ANGIOGRAM OF THE BRAIN; CT ANGIOGRAM OF THE NECK IMPRESSION: 1. There is no hemorrhage, mass effect, or evidence of acute territorial ischemia by CT criteria. 2. Atherosclerotic plaque causes mild stenosis of the cavernous carotid arteries bilaterally. 3. Otherwise unremarkable CT angiogram of the brain. 4. Atherosclerotic plaque causes less than 50% stenosis at the origin of the right internal carotid artery. 5. Otherwise unremarkable CT angiogram of the neck. XR chest 1V portable IMPRESSION: No acute process CT OF THE ABDOMEN AND PELVIS WITH CONTRAST IMPRESSION: 1. No acute process within the abdomen or pelvis. 2. No bowel obstruction. No bowel wall thickening. 3. Bladder wall thickening. This is likely chronic but could be correlated with urinalysis. Hospital Course (1) Stroke-like symptoms: (1) Stroke-like symptoms: Symptoms now resolved. MRI brain w/o contrast with no evidence of stroke Continue aspirin and warfarin. Continue Repatha Allow permissive hypertension - will hold his usual amlodipine. Neurology consulted. Appreciate Dr. Cope's input * "-Work with PCP on stroke prevention goals including A1c less than 7, LDL less than 70, BP less than 130/80 -Discussed stroke prevention including daily exercise and adoption of the Med[place] diet -Recommend that PCP obtain cervical x-ray to rule out any significant cervical ankylosis could be compressing either the spinal cord or causing neuroforaminal stenosis -No neurology follow-up needed" (2) Hypertension: Allow permissive hypertension. Resume amlodipine on discharge. Continue his usual metoprolol tartrate (3) Arm paresthesia, left: Resolved (4) Arm weakness: Resolved (5) Essential tremor: (6) S/P mitral valve replacement: Mechanical Aim INR 2.5-3.5 (7) Atrial fibrillation: Paroxysmal. Continue metoprolol tartrate 25mg PO BID. Continue usual dosing of warfarin. INR 2.4 (8) Ankylosing spondylitis: Suspect patient left sided muscular pain is related to him being off Xeljanz for his recent COVID-19 vaccination. Recommend he calls his recreation specialist after discharge. UA pending for infection but given prior culture negative suspect this is much less likely. (9) CAD (coronary artery disease): Continue aspirin, metoprolol, Repatha, ranolazine. Discharge home. No home health or therapy needed. Follow-up with PCP (2) Hypertension: (3) Arm weakness: (4) Arm paresthesia, left: (5) Atrial fibrillation: (6) Ankylosing spondylitis: (7) CAD (coronary artery disease): Total Time Total Time Spent Total Time Spent (In Minutes): 40 Total Time Includes: Examination of the Patient, Discharge Planning, Medication Reconciliation and Communication With Other Providers Discharge Plan Discharge Items Patient Disposition: Home - Self-Care Reason For Visit: STROKE LIKE SYMPTOMS Discharge Diagnosis: Strokelike symptoms, possible TIA (transischemic attack) Activity: Resume your previous activity Lifting: Gradually increase as tolerated Bathing: No limitations Exercise/Sports: Gradually increase as tolerated Driving/Machine Use: Resume 1 day after discharge Weightbearing: Full weightbearing Non-emergency contact: Primary Care Provider and Neurologist Call non-emergency contact if: you have any medication questions and your symptoms worsen Follow-up/Referrals: Lexii Minor DO [Primary Care Provider] - Diet: Heart Healthy Addtl Attending Provider Instructions: You were admitted with strokelike symptoms. Imaging was completed and showed no definitive evidence of a stroke. At the time of our visit, you had no residual symptoms. You should continue your aspirin and report any new symptoms to your primary care physician or to neurology. Take all prescribed medications that you are taking prior to admission as scheduled. Pending Studies at Discharge: No Stand-Alone Forms: [facility] [employer] Medications and DC Order Prescriptions: Continued Repatha SureClick 140 mg/mL pen injector See Rx Instructions .ROUTE .COMPLEX Qty: 2 RF: 11 sennosides 8.6 mg tablet 8.6 mg PO DAILY PRN (Reason: Constipation) Qty: 30 RF: 5 pantoprazole [Protonix] 40 mg tablet,delayed release (DR/EC) 40 mg PO DAILY Qty: 90 RF: 1 calcium carbonate-vitamin D3 [Os-Bashir 500 + D3] 500 mg(1,250mg) -200 unit tablet 1 tab PO BID RF: 0 oxycodone-acetaminophen [Percocet] 5-325 mg tablet 1 tab PO Q6H PRN (Reason: Pain) RF: 0 diclofenac sodium [Voltaren] 1 % gel 4 gm TOP QID PRN (Reason: Pain) RF: 0 omega-3 fatty acids [Fish Oil Concentrate] 1,000 mg capsule 1,000 mg PO DAILY RF: 0 temazepam 15 mg capsule 15 mg PO HS RF: 0 metoprolol tartrate 25 mg tablet 25 mg PO BID Qty: 180 RF: 3 ranolazine 500 mg tablet extended release 12 hr 500 mg PO QPM Qty: 90 RF: 3 ranolazine 1,000 mg tablet extended release 12 hr 1,000 mg PO QAM Qty: 90 RF: 3 amlodipine 10 mg tablet 10 mg PO QAM Qty: 90 RF: 3 aspirin 81 mg tablet,delayed release (DR/EC) 81 mg PO HS RF: 0 cyclosporine 0.05 % dropperette 1 drops OP Q12H RF: 0 famotidine 40 mg tablet 40 mg PO HS Qty: 30 RF: 5 cephalexin 500 mg capsule 500 mg PO BID RF: 0 baclofen 5 mg tablet 5 mg PO TID PRN (Reason: muscle spasm) Qty: 30 RF: 0 venlafaxine 37.5 mg Capsule,Extended Release 24hr 37.5 mg PO HS RF: 0 polysaccharide iron complex [Ferrex 150] 150 mg iron Capsule 150 mg PO HS RF: 0 ondansetron 4 mg Tablet,Disintegrating 4 mg PO BID PRN (Reason: Nausea) RF: 0 glucosamine-chondroitin [Osteo Bi-Flex] 250-200 mg Tablet 1 tab PO BID RF: 0 cholecalciferol (vitamin D3) [Vitamin D3] 5,000 unit Tablet 5,000 unit PO DAILY RF: 0 Marek Multivitamin For Men 200-175-250 mcg Tablet 1 tab PO DAILY RF: 0 Xeljanz 10 mg Tablet 10 mg PO QAM RF: 0 warfarin [Jantoven] 5 mg tablet 10 mg PO SUTUTHSA RF: 0 warfarin 5 mg tablet 5 mg PO MOWEFR RF: 0 Discharge Orders: Discharge Order (Routine); Ordered 01/24/21 Ordered By: Orville Calderon Admission Data Admit Date/Time: 01/23/21 17:06 Attending Provider: Conner Buckner Admit Provider: Jay Nicholson Primary Care Provider: Lexii Minor Other Providers: Shannan Cope Other Interventions: Discharge Summary Assessment (RN) Last Done: 01/24/21 16:33 Supervising Physician Co-Signing Physician Notes Patient seen and examined on the day of discharge. I agree with the discharge summary by Orville DUQUE. I have reviewed the chart including labs, imaging and plans for discharge. patient has no further neurological symptoms, feels normal, eating and drinking well, no issues with ambulation or speaking - Stroke like symptoms: no acute ischemia seen on MRI brain appreciate neurology consult continue to take antiplatelet therapy, Coumadin, BP control, HbA1c < 7 and LDL < 70 no need for rehab, can d/c to home, follow up with PCP Coding Level of Care Code D/C Day Management >30 mins Diagnoses Stroke-like symptoms R29.90 Hypertension I10 Arm weakness R29.898 Arm paresthesia, left R20.2 Atrial fibrillation I48.91 Ankylosing spondylitis M45.9 CAD (coronary artery disease) I25.10 Time Spent (min) 40
--- NOTE | 2021-01-25 05:32 | Electrocardiogram Report ---
Test Reason : Blood Pressure : / mmHG Vent. Rate : 060 BPM Atrial Rate : 060 BPM P-R Int : 160 ms QRS Dur : 076 ms QT Int : 442 ms P-R-T Axes : 051 018 -17 degrees QTc Int : 442 ms Normal sinus rhythm Normal ECG No previous ECGs available Confirmed by Emery Donald ([id number]) on 01/25/2021 5:31:46 AM Referred By: REFERRED SELF Confirmed By:Emery Donald
== END 2021-01-24 17:14 | disposition home or self-care (01) ==
LOC: 2S 12:44 → ED 12:44 → SUATTDRO 17:06 → 2S 21:19